=== PATIENT | female | born 1995 | race Hispanic/Latino ===

== ENCOUNTER 2017-07-10 02:08 | Emergency (ER) | payer BC, OTHER, SELFPAY ==
[2017-07-10] MEDS ORDERED: NA CHLORIDE 0.9% 1,000 ML ONE (02:59)
[2017-07-10] MEDS ORDERED: LABETALOL 20 MG/4ML SYRINGE IV ONE (03:21)
[2017-07-10] MEDS ORDERED: Magnesium Sulfate 2gm IVPB 2 G/50 ML BAG IV ONE (03:21)
[2017-07-10 03:29] LABS: Absolute Lymphocytes (CBC) 1.6 K/uL (0.7-4.9); Absolute Monocytes 0.4 K/uL (0.1-1.3); Absolute Neutrophil 8.5 K/uL (1.8-8.0); Basophils % 0.4 % (0-1.3); Eosinophils % 0.2 % (0-4.4); Hematocrit 36.3 % (36.0-45.0); Lymphocytes % 15.3 % (15.3-44.8); MCH 31.2 pg (27.0-35.0); MCV 93.2 fL (80-100); MPV 10.2 fL (7.6-11.3); Monocytes % 3.5 % (3.3-12.3)
[2017-07-10 03:33] LABS: Protime INR 0.87
[2017-07-10 03:41] LABS: Potassium 4.6 mEq/L (3.6-5.0)
[2017-07-10 03:47] LABS: Albumin 2.1 g/dL (3.2-5.5); Bilirubin Direct 0.1 mg/dL (0-0.2); Bilirubin Total 0.2 mg/dL (0.3-1.2); Magnesium 2.4 mg/dL (1.8-2.5); Protein, Total 5.2 g/dL (6.0-8.3)
[2017-07-10 03:49] LABS: CKMB Creatine Kinase MB 1.6 ng/ml (0.3-4.0)
[2017-07-10] MEDS ORDERED: ONDANSETRON 4 MG/2 ML VIAL ONE (04:04)
--- NOTE | 2017-07-10 04:24 | EDPHYS ---
Physician Documentation [facility] Name: Maggi Ramirez Age: 21 yrs Sex: Female : 1995 Arrival Date: 07/10/2017 Time: 02:12 Bed 20 Private MD: ED Physician Nnamdi Rucker HPI: 07/10 02:56 This 21 yrs old Female presents to ER via EMS with unknown complaint. molly 02:56 This 21 yrs old Female presents to ER via EMS with complaints of AND molly SEIZURES. 02:56 The patient presents to the emergency department with nausea and vomiting, seizure(s). molly The estimated gestational age is 25 weeks. Associated signs and symptoms: The patient has no apparent associated signs or symptoms. Context: the episode(s) was witnessed, by family, mother. 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 - Social history:: Smoking status: Patient/guardian denies using tobacco. - Family history:: not pertinent. ROS: 02:56 Constitutional: Negative for fever, chills, and weight loss, Eyes: Negative for injury, molly pain, redness, and discharge, ENT: Negative for injury, pain, and discharge, Neck: Negative for injury, pain, and swelling, Cardiovascular: Negative for chest pain, palpitations, and edema, Respiratory: Negative for shortness of breath, cough, wheezing, and pleuritic chest pain, Abdomen/GI: Negative for abdominal pain, nausea, vomiting, diarrhea, and constipation, Back: Negative for injury and pain, : Negative for injury, bleeding, discharge, and swelling, MS/Extremity: Negative for injury and deformity, Skin: Negative for injury, rash, and discoloration, Neuro: Negative for headache, weakness, numbness, tingling, and seizure, Psych: Negative for depression, anxiety, suicide ideation, homicidal ideation, and hallucinations, Allergy/Immunology: Negative for hives, rash, and allergies, Endocrine: Negative for neck swelling, polydipsia, polyuria, polyphagia, and marked weight changes, Hematologic/Lymphatic: Negative for swollen nodes, abnormal bleeding, and unusual bruising. Exam: 02:56 Constitutional: This is a well developed, well nourished patient who is awake, alert, molly and in no acute distress. Head/Face: Normocephalic, atraumatic. Eyes: Pupils equal round and reactive to light, extra-ocular motions intact. Lids and lashes normal. Conjunctiva and sclera are non-icteric and not injected. Cornea within normal limits. Periorbital areas with no swelling, redness, or edema. ENT: Nares patent. No nasal discharge, no septal abnormalities noted. Tympanic membranes are normal and external auditory canals are clear. Oropharynx with no redness, swelling, or masses, exudates, or evidence of obstruction, uvula midline. Mucous membranes moist. Neck: Trachea midline, no thyromegaly or masses palpated, and no cervical lymphadenopathy. Supple, full range of motion without nuchal rigidity, or vertebral point tenderness. No Meningismus. Chest/axilla: Normal chest wall appearance and motion. Nontender with no deformity. No lesions are appreciated. Cardiovascular: Regular rate and rhythm with a normal S1 and S2. No gallops, murmurs, or rubs. Normal PMI, no JVD. No pulse deficits. Respiratory: Lungs have equal breath sounds bilaterally, clear to auscultation and percussion. No rales, rhonchi or wheezes noted. No increased work of breathing, no retractions or nasal flaring. Abdomen/GI: Soft, non-tender, with normal bowel sounds. No distension or tympany. No guarding or rebound. No evidence of tenderness throughout. 03:00 Radiologist reports: SEE REPORT molly Vital Signs: 02:16 BP 164 / 116; Pulse 73; Resp 16; Temp 98.7; Pulse Ox 95% ; Weight 58.97 kg; bp 02:30 BP 147 / 106; Pulse 92; Resp 98; Pulse Ox 95% ; bp 04:01 BP 154 / 110; Pulse 94; Resp 22; Pulse Ox 95% ; bp 04:30 BP 159 / 113; Pulse 88; Resp 22; Pulse Ox 95% ; bp 05:08 BP 158 / 106; Pulse 97; Resp 20; Pulse Ox 96% ; bp 05:28 BP 138 / 102; Pulse 95; Resp 14; Pulse Ox 95% ; bp MDM: 02:53 Patient medically screened. [facility] 03:10 Data reviewed: vital signs, nurses notes, lab test result(s), EKG, radiologic studies. [facility] 07/10 02:55 Order name: Basic Metabolic Panel [facility] 07/10 02:55 Order name: BNP [facility] 07/10 02:55 Order name: CBC with Diff [facility] 07/10 02:55 Order name: Ckmb; Complete Time: 04:19 [facility] 07/10 02:55 Order name: CPK; Complete Time: 04:19 [facility] 07/10 02:55 Order name: LFT's; Complete Time: 04:19 [facility] 07/10 02:55 Order name: Magnesium; Complete Time: 04:19 [facility] 07/10 02:55 Order name: PT-INR; Complete Time: 04:19 [facility] 07/10 02:55 Order name: Ptt, Activated; Complete Time: 04:19 [facility] 07/10 02:55 Order name: Troponin (emerg Dept Use Only); Complete Time: 04:19 [facility] 07/10 02:56 Order name: Basic Metabolic Panel; Complete Time: 04:19 [facility] 07/10 02:56 Order name: BNP B-Type Natriuretic Peptide; Complete Time: 04:19 [facility] 07/10 02:55 Order name: XRAY Chest (1 view) [facility] 07/10 02:55 Order name: EKG; Complete Time: 02:56 [facility] 07/10 02:55 Order name: Cardiac monitoring; Complete Time: 03:24 [facility] 07/10 02:55 Order name: EKG - Nurse/Tech; Complete Time: 04:00 [facility] 07/10 02:55 Order name: IV Saline Lock; Complete Time: 02:56 [facility] 07/10 02:55 Order name: CT Head Brain wo Cont [facility] 07/10 02:56 Order name: CBC with Automated Diff; Complete Time: 04:19 [facility] 07/10 02:55 Order name: Labs collected and sent; Complete Time: 03:24 [facility] 07/10 02:55 Order name: O2 Per Protocol; Complete Time: 03:24 [facility] 07/10 02:55 Order name: O2 Sat Monitoring; Complete Time: 03:24 [facility] 07/10 02:55 Order name: FHT's; Complete Time: 03:10 [facility] 07/10 02:55 Order name: Seizure Precautions; Complete Time: 02:56 [facility] 07/10 03:00 Order name: FHT's; Complete Time: 03:10 molly Administered Medications: 03:00 Drug: NS 0.9% 1000 ml Route: IV; Rate: 1 bolus; Site: left antecubital; bp 05:10 Follow up: IV Status: Completed infusion; Infusion continued bp 03:20 Drug: Magnesium Sulfate 2 grams Route: IVPB; Infused Over: 2 hrs; Site: left bp antecubital; 04:49 Follow up: IV Status: Completed infusion bp 03:20 Drug: Trandate 20 mg Route: IVP; Site: left antecubital; bp 04:00 Follow up: Response: No adverse reaction bp 04:06 Drug: Zofran 4 mg Route: IVP; Site: left antecubital; bp 04:06 Follow up: Response: Nausea is decreased bp 05:01 Drug: Trandate 20 mg Route: IVP; Site: right antecubital; ao 05:10 Follow up: Response: No change in condition bp 05:07 Drug: Magnesium Sulfate 4 grams Route: IVPB; Infused Over: 2 hrs; Site: left aa1 antecubital; 05:11 Follow up: IV Status: Infusion continued upon transfer bp 05:12 Drug: Betamethasone 12 mg Route: IM; Site: left gluteus; aa1 05:17 Drug: Trandate 20 mg Route: IVP; Site: right hand; ao 05:25 Follow up: Response: No adverse reaction bp Disposition: 07/10/17 04:24 Transfer ordered to [facility]. Diagnosis are related conditions, unspecified, second trimester, Epilepsy and recurrent seizures - PRES SYNDROME, Essential (primary) hypertension. - Reason for transfer: Higher level of care. - Accepting physician is TO [facility], OB /WOOD PANEL INSPECTOR. - Condition is Serious. - Problem is new. - Symptoms have improved. Signatures: Dispatcher [employer] EDMS Josefa Kiser RN RN aa1 Nnamdi Rucker MD MD cha Ortiz, Alex RN Adelfo Ballesteros RN RN bp Botello, Elizabeth eb Corrections: (The following items were deleted from the chart) 04:40 04:24 07/10/2017 04:24 Transfer ordered to [facility]. Diagnosis is eb related conditions, unspecified, second trimester; Epilepsy and recurrent seizures - PRES SYNDROME; Essential (primary) hypertension. Reason for transfer: Higher level of care. Accepting physician is TO [facility], OB /WOOD PANEL INSPECTOR. Condition is Serious. Problem is new. Symptoms have improved. molly 05:39 04:40 07/10/2017 04:24 Transfer ordered to [facility]. Diagnosis is bp related conditions, unspecified, second trimester; Epilepsy and recurrent seizures - PRES SYNDROME; Essential (primary) hypertension. Reason for transfer: Higher level of care. Accepting physician is TO [facility], OB /WOOD PANEL INSPECTOR. Condition is Serious. Problem is new. Symptoms have improved. eb
--- NOTE | 2017-07-10 04:24 | ER ---
Nurse's Notes [facility] Name: Maggi Ramirez Age: 21 yrs Sex: Female : 1995 Arrival Date: 07/10/2017 Time: 02:12 Bed 20 Private MD: Diagnosis: related conditions, unspecified, second trimester;Epilepsy and recurrent seizures-PRES SYNDROME;Essential (primary) hypertension Presentation: 07/10 02:13 Presenting complaint: EMS states: FAMILY SAID SHE WAS SHAKING AND WOULDN'T STOP. bp Transition of care: patient was not received from another setting of care. Onset of symptoms is unknown. Initial Sepsis Screen: Does the patient meet any 2 criteria? No. Patient's initial sepsis screen is negative. Does the patient have a suspected source of infection? No. Patient's initial sepsis screen is negative. Care prior to arrival: IV initiated. 20 GA, in the left antecubital area, Glucose check: 90. 02:13 Method Of Arrival: EMS: [facility] bp 02:13 Acuity: ANIBAL 3 bp Triage Assessment: 02:16 General: Appears distressed, comfortable, Behavior is calm, cooperative, appropriate bp for age. Pain: Denies pain. EENT: No deficits noted. Neuro: Level of Consciousness is awake, obeys commands, lethargic, Oriented to person, place, time, situation, Appropriate for age. Respiratory: Airway is patent Respiratory effort is even, unlabored. GI: No signs and/or symptoms were reported involving the gastrointestinal system. 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 - Social history:: Smoking status: Patient/guardian denies using tobacco. - Family history:: not pertinent. Screenin:34 Abuse screen: Denies threats or abuse. Denies injuries from another. Nutritional bp screening: No deficits noted. Tuberculosis screening: No symptoms or risk factors identified. Fall Risk None identified. Assessment: 02:34 Reassessment: SEE TRIAGE NOTE. bp 04:05 Reassessment: PT RETURNED FROM CT. SPONTANEOUS VOMITING. PROVIDER NOTIFIED. bp 04:30 Reassessment: PER PROVIDER, CT HEAD GROSSLY ABNORMAL. TRANSFER REQUEST TRANSMITTED. bp 04:58 Reassessment: TRANSFER IN PROCESS, ETA 22MIN FOR [facility]. PT CONTINUES TO BE bp LETHARGIC. 05:27 Reassessment: [facility] AT B/S FOR TRANSPORT. bp Vital Signs: 02:16 BP 164 / 116; Pulse 73; Resp 16; Temp 98.7; Pulse Ox 95% ; Weight 58.97 kg; bp 02:30 BP 147 / 106; Pulse 92; Resp 98; Pulse Ox 95% ; bp 04:01 BP 154 / 110; Pulse 94; Resp 22; Pulse Ox 95% ; bp 04:30 BP 159 / 113; Pulse 88; Resp 22; Pulse Ox 95% ; bp 05:08 BP 158 / 106; Pulse 97; Resp 20; Pulse Ox 96% ; bp 05:28 BP 138 / 102; Pulse 95; Resp 14; Pulse Ox 95% ; bp Vitals: 03:22 Heart Tones 160. bp ED Course: 02:12 Patient arrived in ED. rg2 02:12 Adelfo Steiner, RN is Primary Nurse. bp 02:15 Triage completed. bp 02:34 Arm band placed on. bp 02:34 Patient has correct armband on for positive identification. Bed in low position. Call bp light in reach. Side rails up X2. Adult w/ patient. 02:34 Maintain EMS IV. Dressing intact. Good blood return noted. Site clean \T\ dry. Gauge \T\ bp site: 20 GAUGE LEFT AC. 02:53 Nnamdi Rucker MD is Attending Physician. molly 03:34 X-ray completed. Portable x-ray completed in exam room. Patient tolerated procedure bb2 well. 03:[address] via stretcher. nj 03:36 CT Head Brain wo Cont In Process Unspecified. EDMS 03:39 XRAY Chest (1 view) In Process Unspecified. EDMS 03:46 CT completed. Patient tolerated procedure well. Patient moved back from CT. nj 04:16 initiated transfer to [facility] with Zunilda Mcleod. eb 04:[id number] Santiago Pereira connected and accepted patient in transfer/ administrative eb approval given by Zunilda Mcleod. Pt to go to [facility] L\T\D. 05:07 Report given to DHIRAJ FROST, [facility] L\T\D TRIAGE. bp 05:18 Inserted saline lock: 22 gauge in right forearm, using aseptic technique. ao 05:28 No provider procedures requiring assistance completed. Patient transferred, IV remains bp in place. Administered Medications: 03:00 Drug: NS 0.9% 1000 ml Route: IV; Rate: 1 bolus; Site: left antecubital; bp 05:10 Follow up: IV Status: Completed infusion; Infusion continued bp 03:20 Drug: Magnesium Sulfate 2 grams Route: IVPB; Infused Over: 2 hrs; Site: left bp antecubital; 04:49 Follow up: IV Status: Completed infusion bp 03:20 Drug: Trandate 20 mg Route: IVP; Site: left antecubital; bp 04:00 Follow up: Response: No adverse reaction bp 04:06 Drug: Zofran 4 mg Route: IVP; Site: left antecubital; bp 04:06 Follow up: Response: Nausea is decreased bp 05:01 Drug: Trandate 20 mg Route: IVP; Site: right antecubital; ao 05:10 Follow up: Response: No change in condition bp 05:07 Drug: Magnesium Sulfate 4 grams Route: IVPB; Infused Over: 2 hrs; Site: left aa1 antecubital; 05:11 Follow up: IV Status: Infusion continued upon transfer bp 05:12 Drug: Betamethasone 12 mg Route: IM; Site: left gluteus; aa1 05:17 Drug: Trandate 20 mg Route: IVP; Site: right hand; ao 05:25 Follow up: Response: No adverse reaction bp Outcome: 04:24 ER care complete, transfer ordered by MD. barnes 05:28 Transferred by helicopter to [facility]. bp 05:28 Condition: stable 05:28 Instructed on the need for transfer. 05:39 Patient left the ED. bp Signatures: Dispatcher [employer] EDMS Lin Hernandez2 Josefa Kiser RN RN aa1 Nnamdi Rucker MD MD cha Ortiz, Alex RN Dilan Augustine Brian, RN RN bp Swathi Dahl Elizabeth eb Corrections: (The following items were deleted from the chart) 02:34 02:16 BP 147 / 106; Pulse 92bpm; Resp 98bpm; Pulse Ox 95%; bp bp 04:47 02:16 BP 164 / 116; Pulse 73bpm; Resp 16bpm; Pulse Ox 95%; bp bp
[2017-07-10] MEDS ORDERED: LABETALOL HCL 100 MG/20 ML ONE (04:54)
[2017-07-10] MEDS ORDERED: Magnesium Sulfate 2gm IVPB 4 G/100 ML BAG IV ONE (05:00)
[2017-07-10] MEDS ORDERED: BETAMET ACET/BETAMET NA PH 6 MG/ML VIAL IM ONE (05:06)
[2017-07-10 05:43] VITALS: TEMP 98.7
[2017-07-10 05:49] VITALS: BP 138/102; O2SAT 95
--- NOTE | 2017-07-10 06:28 | EKG ---
Test Date: 2017-07-10 Test Time: 03:57:23 House Decorator: CHANDRA MEASUREMENT RESULTS: Intervals: Rate: 95 LA: 142 QRSD: 66 QT: 342 QTc: 429 [place]: P: 75 LA: 142 QRS: 63 T: 34 INTERPRETIVE STATEMENTS: Normal sinus rhythm Normal ECG Compared to ECG 03/05/2006 20:00:22 Sinus arrhythmia no longer present Electronically Signed On 07-10-17 06:27:38 CDT by Rey William
--- NOTE | 2017-07-10 09:17 | RAD REPORT ---
EXAM DESCRIPTION: RAD - Chest Single View - 07/10/2017 3:39 am CLINICAL HISTORY: Abdominal pain, abdominal distention COMPARISON: None. TECHNIQUE: AP portable chest image was obtained 0328 hours . FINDINGS: Lung volumes are normal. Right lung field is clear. There is motion degradation present ac centuating lung base markings. At the left there is hazy opacification obscuring the left hemidiaphra gm. Heart size and vasculature are normal range. No pneumothorax. No right-sided pleural effusion. No gross bony abnormality seen. No acute aortic findings suspected. IMPRESSION: Suspected pneumonia or atelectasis at the left base with probable small effusion.
--- NOTE | 2017-07-10 11:33 | RAD REPORT ---
EXAM DESCRIPTION: CT - Head Brain Wo Cont - 07/10/2017 6:39 am CLINICAL HISTORY: Seizure like activity, , altered awareness Technical difficulties delayed final report. A preliminary written report was provided at the time of the study, and the report was reviewed prior to final dictation. COMPARISON: None. TECHNIQUE: Axial 5 mm thick images of the head were obtained without IV contrast. All CT scans are performed using dose optimization technique as appropriate and may include automated exposure control or mA/KV adjustment according to patient size. FINDINGS: No intracranial hemorrhage is present. There is no midline shift. Ventricles are normal. D ecreased attenuation is present involving cortical and subcortical white matter in the bilateral sammy etal lobes near the midline. There is a patchy area diminished activity in the right frontal lobe. Th e posterior fossa, temporal lobes and inferior frontal lobes are normal. No midline shift. Mastoid air cells and visualized portions of the paranasal sinuses are clear. No acute bony findings. IMPRESSION: Abnormal decreased attenuation in the parietal lobes adjacent to the falx. There is dimi nished attenuation in the right frontal lobe white matter as well. In a patient, superior sagittal sinus thrombosis would be a primary concern. Arterial side ischemic or vasculitis process would be possible but not common in a patient this age. Infectious/ in flammatory process would also be a consideration.
== END 2017-07-10 05:39 | disposition short-term general hospital (02) ==
LOC: ER 02:08
DX: I67.83 Posterior reversible encephalopathy syndrome (principal); O16.2 Unspecified maternal hypertension, second trimester; O99.352 Diseases of the nervous system complicating pregnancy, second trimester; G40.802 Other epilepsy, not intractable, without status epilepticus; Z3A.25 25 weeks gestation of pregnancy
CPT/HCPCS: 36415; 70450; 71045; 80048; 80076; 82550; 82553; 83735; 83880; 84484; 85025; 85610; 85730; 93005; 96361; 96365; 96372; 96375; 99285; J2405; J3475; J7030

== ENCOUNTER 2019-04-08 12:21 | Emergency (ER) | payer OTHER, SELFPAY ==
--- OUTSIDE RECORDS SUMMARY | 2019-04-08 12:22 | XMS REPORT ---
:1995 [facility] Address [address] [place] [address] Dr. Yanes [address] [place] [id number] Care Team Providers Name Role Phone Unavailable Unavailable Unavailable Problems This patient has no known problems. Allergies, Adverse Reactions, Alerts This patient has no known allergies or adverse reactions. Medications This patient has no known medications.
[2019-04-08] MEDS ORDERED: ONDANSETRON 4 MG (ODT) TAB ONE (13:23)
[2019-04-08 14:08] LABS: Urine Blood NEGATIVE (NEG); Urine Glucose 1+ (NEG); Urine Protein NEGATIVE (NEG); Urine pH 5.5 (5.0-7.0)
[2019-04-08] MEDS ORDERED: MORPHINE 2 MG/ML SYR ONE ×2 (15:01→16:48)
[2019-04-08] MEDS ORDERED: KETOROLAC 30 MG/ML INJ ONE (15:01)
[2019-04-08] MEDS ORDERED: ONDANSETRON 4 MG/2 ML VIAL ONE (15:01)
[2019-04-08] MEDS ORDERED: NA CHLORIDE 0.9% 1,000 ML ONE (15:01)
--- NOTE | 2019-04-08 15:25 | RAD REPORT ---
EXAM DESCRIPTION: CT - Stone Protocol - 04/08/2019 2:56 pm CLINICAL HISTORY: ABD PAIN COMPARISON: ABD PAIN TECHNIQUE: CT imaging of the abdomen was performed without oral or IV contrast. All CT scans are performed using dose optimization technique as appropriate and may include automated exposure control or mA/KV adjustment according to patient size. FINDINGS: No suspicious findings in the lung bases. The liver, spleen, and pancreas show no suspicious findings for a non IV contrast study. Gallbladder and biliary tree are also without suspicious finding. No hydronephrosis or suspicious mass in either kidney. Isodense masses and pyelonephritis are not exc luded. No adrenal abnormalities. Contracted urinary bladder shows no stone. Bladder assessment is myers ited. Uterus and ovaries show no suspicious findings. No dilated bowel loops or bowel wall thickening. No free air, free fluid or inflammatory stranding. N o hernia, mass or bulky lymphadenopathy. Appendix is normal. No suspicious bony findings. Overall exam sensitivity is decreased when no contrast is administered. IMPRESSION: Non-contrast CT abdomen study shows no significant or suspicious finding.
[2019-04-08 15:28] LABS: Basophils % 0.1 % (0-1.3); Hematocrit 41.7 % (36.0-45.0); Lymphocytes % 5.6 % (15.3-44.8); MPV 9.7 fL (7.6-11.3); RBC Red Blood Cell Count 4.68 M/uL (3.86-4.86)
[2019-04-08 15:46] LABS: ALT/SGPT 18 U/L (12-78); AST/SGOT 13 U/L (15-37); Alkaline Phosphatase 104 U/L (45-117); BUN Blood Urea Nitrogen 13 mg/dL (7-18); Bicarbonate 25 mmol/L (21-32); Bilirubin Direct 0.1 mg/dL (0-0.2); Bilirubin Total 0.3 mg/dL (0.2-1.0); Glucose Level 87 mg/dL (74-106); Lipase 122 U/L (73-393); Potassium 4.1 mmol/L (3.5-5.1); Protein, Total 7.8 g/dL (6.4-8.2); Sodium Level 142 mmol/L (136-145)
--- NOTE | 2019-04-08 16:33 | ER ---
Nurse's Notes [facility] Name: Maggi Ramirez Age: 23 yrs Sex: Female : 1995 Arrival Date: 04/08/2019 Time: 12:24 Bed 15 Private MD: Diagnosis: Vomiting;Abdominal tenderness;Elevated white blood cell count Presentation: 04/08 12:51 Presenting complaint: Patient states: Nausea, fatigue and chills that began this ss morning. Pt vomited during triage and reports she feels much better. Transition of care: patient was not received from another setting of care. Onset of symptoms was April 08, 2019. Risk Assessment: Do you want to hurt yourself or someone else? Patient reports no desire to harm self or others. Initial Sepsis Screen: Does the patient meet any 2 criteria? HR > 90 bpm. Does the patient have a suspected source of infection? No. Patient's initial sepsis screen is negative. Care prior to arrival: None. 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 - Coronavirus screen:: The patient has NOT traveled to [place] in the past 14 days. Proceed with normal triage process as indicated. - Social history:: Smoking status: Patient denies any tobacco usage or history of. - Family history:: not pertinent. - Ebola Screening: : Patient denies exposure to infectious person Patient denies travel to an Ebola-affected area in the 21 days before illness onset. Screenin:42 Abuse screen: Denies threats or abuse. Denies injuries from another. Nutritional mg2 screening: No deficits noted. Tuberculosis screening: No symptoms or risk factors identified. Fall Risk None identified. Assessment: 13:40 General: Appears in no apparent distress. comfortable, Behavior is calm, cooperative. mg2 Pain: Complains of pain in left sided pain-abdominal Pain does not radiate. Pain currently is 6 out of 10 on a pain scale. Quality of pain is described as aching, Pain began gradually, Is intermittent. Neuro: Level of Consciousness is awake, alert, obeys commands, Oriented to person, place, time, situation. Cardiovascular: Capillary refill < 3 seconds Patient's skin is warm and dry. Respiratory: Airway is patent Respiratory effort is even, unlabored, Respiratory pattern is regular, symmetrical. Respiratory: Reports cough that is. GI: Abdomen is flat, non-distended, Reports lower abdominal pain, vomiting. : No signs and/or symptoms were reported regarding the genitourinary system. EENT: No signs and/or symptoms were reported regarding the EENT system. Derm: Skin is intact, is healthy with good turgor, Skin is pink, warm \T\ dry. normal. Musculoskeletal: Circulation, motion, and sensation intact. Capillary refill < 3 seconds. Vital Signs: 12:49 BP 124 / 84; Pulse 105; Resp 16; Pulse Ox 98% on R/A; Weight 58.97 kg; Height 5 ft. 0 ss in. (152.40 cm); Pain 6/10; 13:27 Temp 97.9; mg2 14:30 BP 123 / 83; Pulse 95; Resp 18; Pulse Ox 97% on R/A; mg2 15:56 BP 117 / 79; Pulse 88; Resp 18; Pulse Ox 97% on R/A; mg2 16:52 BP 117 / 69; Pulse 80; Resp 18; Temp 98; Pulse Ox 100% on R/A; mg2 12:49 Body Mass Index 25.39 (58.97 kg, 152.40 cm) ED Course: 12:24 Patient arrived in ED. mr 12:49 Arm band placed on right wrist. ss 12:51 Triage completed. ss 13:12 Nnamdi Rucker MD is Attending Physician. molly 13:15 Gordon Brown, MARGOT is Primary Nurse. mg2 13:43 Patient has correct armband on for positive identification. mg2 13:43 No provider procedures requiring assistance completed. mg2 14:56 CT completed. Patient tolerated procedure well. Patient moved back from CT. mw3 15:17 Inserted saline lock: 22 gauge in right antecubital area, using aseptic technique. mg2 Blood collected. 16:32 Gabino Aguero MD is Referral Physician. molly 16:54 IV discontinued, intact, bleeding controlled, No redness/swelling at site. Pressure mg2 dressing applied. Administered Medications: 13:26 Drug: Zofran 4 mg Route: PO; mg2 15:16 Follow up: Response: No adverse reaction mg2 15:14 Drug: Zofran 4 mg Route: IVP; Site: right antecubital; mg2 16:39 Follow up: Response: No adverse reaction mg2 15:15 Drug: TORadol 30 mg Route: IVP; Site: right antecubital; mg2 16:39 Follow up: Response: No adverse reaction mg2 15:15 Drug: morphine 2 mg Route: IVP; Site: right antecubital; mg2 16:39 Follow up: Response: No adverse reaction mg2 15:16 Drug: NS 0.9% 1000 ml Route: IV; Rate: 1 bolus; Site: right antecubital; mg2 16:39 Follow up: Response: No adverse reaction; IV Status: Completed infusion; IV Intake: mg2 1000ml 16:53 Drug: morphine 2 mg Route: IVP; Site: right antecubital; mg2 16:53 Follow up: Response: No adverse reaction; Medication administered at discharge. mg2 Intake: 16:39 IV: 1000ml; Total: 1000ml. mg2 Outcome: 16:32 Discharge ordered by . molly 16:54 Discharged to home via wheelchair, with family. mg2 16:54 Condition: stable 16:54 Discharge instructions given to patient, family, Instructed on discharge instructions, follow up and referral plans. medication usage, Demonstrated understanding of instructions, follow-up care, medications, Prescriptions given X 3. 16:55 Patient left the ED. mg2 Signatures: Nnamdi Rucker MD MD cha Rivera, Jaquelin mr Albina Sanz RN RN Gordon Brown RN RN mg2 Mignon Cunningham mw3 Corrections: (The following items were deleted from the chart) 15:17 13:43 Patient did not have IV access during this emergency room visit. mg2 mg2
--- NOTE | 2019-04-08 16:34 | EDPHYS ---
Physician Documentation [facility] Name: Maggi Ramirez Age: 23 yrs Sex: Female : 1995 Arrival Date: 04/08/2019 Time: 12:24 Bed 15 Private MD: ED Physician Nnamdi Rucker HPI: 04/08 14:33 This 23 yrs old Female presents to ER via Ambulatory with complaints of molly Vomiting. 14:33 The patient presents to the emergency department with nausea, vomiting, abdominal pain, molly of the posterior aspect of left lateral abdomen, anterior aspect of left lateral abdomen and left upper quadrant. Onset: The symptoms/episode began/occurred this morning. Possible causes: unknown. The symptoms are aggravated by nothing. The symptoms are alleviated by nothing. Associated signs and symptoms: Pertinent positives: abdominal pain, nausea, vomiting. Severity of symptoms: At their worst the symptoms were moderate in the emergency department the symptoms are unchanged. The patient has experienced a previous episode. 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 - Coronavirus screen:: The patient has NOT traveled to [place] in the past 14 days. Proceed with normal triage process as indicated. - Social history:: Smoking status: Patient denies any tobacco usage or history of. - Family history:: not pertinent. - Ebola Screening: : Patient denies exposure to infectious person Patient denies travel to an Ebola-affected area in the 21 days before illness onset. ROS: 14:33 Constitutional: Negative for fever, chills, and weight loss, Eyes: Negative for injury, molly pain, redness, and discharge, ENT: Negative for injury, pain, and discharge, Neck: Negative for injury, pain, and swelling, Cardiovascular: Negative for chest pain, palpitations, and edema, Respiratory: Negative for shortness of breath, cough, wheezing, and pleuritic chest pain, : Negative for injury, bleeding, discharge, and swelling, MS/Extremity: Negative for injury and deformity, Skin: Negative for injury, rash, and discoloration, Neuro: Negative for headache, weakness, numbness, tingling, and seizure, Psych: Negative for depression, anxiety, suicide ideation, homicidal ideation, and hallucinations, Allergy/Immunology: Negative for hives, rash, and allergies, Endocrine: Negative for neck swelling, polydipsia, polyuria, polyphagia, and marked weight changes. 14:33 Abdomen/GI: Positive for abdominal pain, of the posterior aspect of left lateral abdomen, anterior aspect of left lateral abdomen and left upper quadrant. Exam: 14:33 Constitutional: This is a well developed, well nourished patient who is awake, alert, molly and in no acute distress. Head/Face: Normocephalic, atraumatic. Eyes: Pupils equal round and reactive to light, extra-ocular motions intact. Lids and lashes normal. Conjunctiva and sclera are non-icteric and not injected. Cornea within normal limits. Periorbital areas with no swelling, redness, or edema. ENT: Nares patent. No nasal discharge, no septal abnormalities noted. Tympanic membranes are normal and external auditory canals are clear. Oropharynx with no redness, swelling, or masses, exudates, or evidence of obstruction, uvula midline. Mucous membranes moist. Neck: Trachea midline, no thyromegaly or masses palpated, and no cervical lymphadenopathy. Supple, full range of motion without nuchal rigidity, or vertebral point tenderness. No Meningismus. Chest/axilla: Normal chest wall appearance and motion. Nontender with no deformity. No lesions are appreciated. Respiratory: Lungs have equal breath sounds bilaterally, clear to auscultation and percussion. No rales, rhonchi or wheezes noted. No increased work of breathing, no retractions or nasal flaring. Back: No spinal tenderness. No costovertebral tenderness. Full range of motion. Skin: Warm, dry with normal turgor. Normal color with no rashes, no lesions, and no evidence of cellulitis. MS/ Extremity: Pulses equal, no cyanosis. Neurovascular intact. Full, normal range of motion. Neuro: Awake and alert, GCS 15, oriented to person, place, time, and situation. Cranial nerves II-XII grossly intact. Motor strength 5/5 in all extremities. Sensory grossly intact. Cerebellar exam normal. Normal gait. Psych: Awake, alert, with orientation to person, place and time. Behavior, mood, and affect are within normal limits. 14:33 Cardiovascular: Rate: tachycardic, Rhythm: regular, Pulses: Pulses are 4+ in bilateral radial, brachial, femoral, popliteal, posterior tibial and and dorsalis pedis arteries.. Heart sounds: normal, Edema: is not appreciated, JVD: is not appreciated. Vital Signs: 12:49 BP 124 / 84; Pulse 105; Resp 16; Pulse Ox 98% on R/A; Weight 58.97 kg; Height 5 ft. 0 ss in. (152.40 cm); Pain 6/10; 13:27 Temp 97.9; mg2 14:30 BP 123 / 83; Pulse 95; Resp 18; Pulse Ox 97% on R/A; mg2 15:56 BP 117 / 79; Pulse 88; Resp 18; Pulse Ox 97% on R/A; mg2 16:52 BP 117 / 69; Pulse 80; Resp 18; Temp 98; Pulse Ox 100% on R/A; mg2 12:49 Body Mass Index 25.39 (58.97 kg, 152.40 cm) ss MDM: 13:12 Patient medically screened. molly 14:37 Data reviewed: vital signs, nurses notes, lab test result(s), radiologic studies, CT molly scan. 04/08 13:27 Order name: Urine Dipstick--Ancillary (enter results) 04/08 13:27 Order name: Urine --Ancillary (enter results) 04/08 14:09 Order name: Urine --Ancillary; Complete Time: 14:29 EDNC 04/08 14:09 Order name: Urine Dipstick-Ancillary; Complete Time: 14:29 EDNC 04/08 14:33 Order name: Basic Metabolic Panel [facility] 04/08 14:33 Order name: CBC with Diff [facility] 04/08 14:33 Order name: Creatinine for Radiology [facility] 04/08 14:33 Order name: Hepatic Function [facility] 04/08 14:33 Order name: Lipase [facility] 04/08 15:41 Order name: CBC with Automated Diff EDNC 04/08 15:45 Order name: Creatinine (Radiology Only); Complete Time: 15:52 EDMS 04/08 15:49 Order name: Basic Metabolic Panel; Complete Time: 15:52 EDNC 04/08 15:49 Order name: Liver (Hepatic) Function; Complete Time: 15:52 EDNC 04/08 15:49 Order name: Lipase; Complete Time: 15:52 EDMS 04/08 13:17 Order name: Urine Dipstick-Ancillary (obtain specimen); Complete Time: 13:26 [facility] 04/08 13:17 Order name: Urine Test (obtain specimen); Complete Time: 13:26 [facility] 04/08 14:33 Order name: IV Saline Lock; Complete Time: 15:16 [facility] 04/08 14:33 Order name: Labs collected and sent; Complete Time: 15:16 [facility] 04/08 14:33 Order name: CT Stone Protocol [facility] 04/08 15:53 Order name: Chest Single View XRAY [facility] 04/08 16:23 Order name: CT; Complete Time: 16:31 EDMS 04/08 16:53 Order name: CBC Smear Scan EDMS Administered Medications: 13:26 Drug: Zofran 4 mg Route: PO; mg2 15:16 Follow up: Response: No adverse reaction mg2 15:14 Drug: Zofran 4 mg Route: IVP; Site: right antecubital; mg2 16:39 Follow up: Response: No adverse reaction mg2 15:15 Drug: TORadol 30 mg Route: IVP; Site: right antecubital; mg2 16:39 Follow up: Response: No adverse reaction mg2 15:15 Drug: morphine 2 mg Route: IVP; Site: right antecubital; mg2 16:39 Follow up: Response: No adverse reaction mg2 15:16 Drug: NS 0.9% 1000 ml Route: IV; Rate: 1 bolus; Site: right antecubital; mg2 16:39 Follow up: Response: No adverse reaction; IV Status: Completed infusion; IV Intake: mg2 1000ml 16:53 Drug: morphine 2 mg Route: IVP; Site: right antecubital; mg2 16:53 Follow up: Response: No adverse reaction; Medication administered at discharge. mg2 Disposition: 04/08/19 16:32 Discharged to Home. Impression: Vomiting, Abdominal tenderness, Elevated white blood cell count. - Condition is Stable. - Discharge Instructions: Abdominal Pain, Adult, Nausea and Vomiting, Adult, Abdominal Pain, Adult, [id number]. - Prescriptions for Bentyl 20 mg Oral Tablet - take 1 tablet by ORAL route every 6 hours As needed; 20 tablet. Pepcid 20 mg Oral Tablet - take 1 tablet by ORAL route every 12 hours for 10 days; 20 tablet. Zofran 4 mg Oral Tablet - take 1 tablet by ORAL route every 12 hours As needed; 20 tablet. - Medication Reconciliation Form, Thank You Letter, Antibiotic Education, Prescription Opioid Use form. - Follow up: Private Physician; When: 2 - 3 days; Reason: Recheck today's complaints, Continuance of care, Re-evaluation by your physician. Follow up: Gabino Aguero; When: 2 - 3 days; Reason: Recheck today's complaints, Re-evaluation by your physician. - Problem is new. - Symptoms have improved. Signatures: Dispatcher [employer] EDNC Nnamdi Rucker MD MD cha Smirch, Shelby, RN RN ss Gordon Brown RN RN mg2 Corrections: (The following items were deleted from the chart) 16:55 16:32 04/08/2019 16:32 Discharged to Home. Impression: Vomiting; Abdominal tenderness; mg2 Elevated white blood cell count. Condition is Stable. Discharge Instructions: Abdominal Pain, Adult, Nausea and Vomiting, Adult, Abdominal Pain, Adult, [id number]. Prescriptions for Bentyl 20 mg Oral Tablet - take 1 tablet by ORAL route every 6 hours As needed; 20 tablet, Pepcid 20 mg Oral Tablet - take 1 tablet by ORAL route every 12 hours for 10 days; 20 tablet, Zofran 4 mg Oral Tablet - take 1 tablet by ORAL route every 12 hours As needed; 20 tablet. and Forms are Medication Reconciliation Form, Thank You Letter, Antibiotic Education, Prescription Opioid Use. Follow up: Private Physician; When: 2 - 3 days; Reason: Recheck today's complaints, Continuance of care, Re-evaluation by your physician. Follow up: Gabino Aguero; When: 2 - 3 days; Reason: Recheck today's complaints, Re-evaluation by your physician. Problem is new. Symptoms have improved. molly
[2019-04-08 16:52] LABS: Blood Morphology Comment NOT SEEN (NOT SEEN); Platelet Estimate ADEQ; Urine White Blood Cell Casts OK
--- NOTE | 2019-04-08 16:58 | RAD REPORT ---
EXAM DESCRIPTION: RAD - Chest Single View - 04/08/2019 4:13 pm CLINICAL HISTORY: COUGH COMPARISON: Portable chest June 2017 TECHNIQUE: AP portable chest image was obtained 04/08/2019 4:13 pm . FINDINGS: Lungs are clear. Heart and vasculature are normal. No measurable pleural effusion and no p neumothorax. No acute bony abnormality seen. No acute aortic findings suspected. IMPRESSION: No acute cardiopulmonary process. No significant change from comparison.
[2019-04-08 17:18] VITALS: O2SAT 100
[2019-04-08 18:00] VITALS: BP 117/69; TEMP 98
== END 2019-04-08 16:55 | disposition home or self-care (01) ==
LOC: ER 12:21
DX: D72.829 Elevated white blood cell count, unspecified (principal); R10.819 Abdominal tenderness, unspecified site
CPT/HCPCS: 36415; 71045; 74176; 76377; 80048; 80076; 81003; 81025; 83690; 85025; 96361; 96374; 96375; 99284; J2270; J2405; J7030

== ENCOUNTER 2019-09-19 17:05 | Emergency (ER) | payer SELFPAY ==
--- OUTSIDE RECORDS SUMMARY | 2019-09-19 17:07 | XMS REPORT | Continuity of Care Document ---
:1995 Author Organization [facility] t Address [address] [place] [address] Care Team Providers Name Role Phone Anastasiia Munroe Attending Clinician Problems This patient has no known problems. Allergies, Adverse Reactions, Alerts This patient has no known allergies or adverse reactions. Medications This patient has no known medications. Procedures This patient has no known procedures. Encounters Start End Encounter Admission Attending Care Care Encounter Source Date/Time Date/Time Type Type Clinicians Facility Department ID 2019-08-07 2019-08-07 Office [facility] [id number] 10:13:20 10:58:03 Visit Haylee Laurent NETWORK MANAGER [id number] [facility] [id number] MATERNAL [id number] & CHILD [address] [place] [address] Results This patient has no known results.
--- OUTSIDE RECORDS SUMMARY | 2019-09-19 17:07 | XMS REPORT | Summary of Care ---
:1995 Author Organization [facility] Address [address] [place] [address] Care Team Providers Name Role Phone Jenae Funk Unavailable Anastasiia Austin SHAYNE Primary Care Provider Reason for Visit Reason Comments Appointment telehealth Encounter Details Date Type Department Care Team Description 07/10/2019 Telephone [facility]- Haylee Austin Jeff ointment ADDISON Chambers (telehealth) [address] [facility] [address] [facility] [address] [address] [place], [place] [id number] Allergies No Known Allergiesdocumented as of this encounter (statuses as of 07/10/2019) Medications Medication Sig Dispensed Refills Start Date End Date Status NIFEdipine ER 30 mg SR Take 1 tablet by 60 tablet 1 07/14/2017 Active tablet mouth 2 (two) times daily. vitamin w/FA Take 1 tablet by 100 tablet 3 07/14/2017 Active tablet mouth daily. traMADol (ULTRAM) 50 Take 1 tablet by 20 tablet 0 04/08/2019 Active mg tabletIndications: mouth every 6 Left lower quadrant (six) hours as abdominal pain needed for Pain (scale 7-10). documented as of this encounter (statuses as of 07/10/2019) Active Problems Problem Noted Date History of classical section 08/19/2017 Overview: Needs delivery at 36-37 wks if pt gets p regnant again. 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 08/19/2017 Overview: Growth scans every 4 weeks NSTs at 30 to 32 for 2 vessel cord Two vessel umbilical cord, antepartum 07/09/2017 Abnormal quad screen 06/14/2017 08/19/2017 Primigravida, antepartum 06/03/2017 07/13/2017 Insufficient antepartum care 06/03/2017 08/19/2017 High risk in young primigravida 06/03/2017 08/19/2017 documented as of this encounter (statuses as of 07/10/2019) Immunizations Name Administration Dates Next Due HPV9 01/17/2018, 08/17/2017, 07/14/2017 Influenza Virus Vaccine Quad IM 3+ YRS 06/03/2017 documented as of this encounter Social History Tobacco Use Types Packs/Day Years Used Date Never Smoker Smokeless Tobacco: Never Used Alcohol Use Drinks/Week oz/Week Comments No Sex Assigned at Date Recorded Not on file Job Start Date Occupation Industry Not on file Not on file Not on file Travel History Travel Start Travel End No recent travel history available. documented as of this encounter Last Filed Vital Signs Not on filedocumented in this encounter Plan of Treatment Date Type Specialty Care Team Description 07/10/2019 Telemedicine Visit [facility] Jacques Austin, ADDISON Arrived [address], [place] [address] [phone] Health Maintenance Due Date Last Done Comments MENINGOCOCCAL B VACCINES (1 of 10/04/2007 2 - Risk Bexsero 2-dose series) DTaP,Tdap,and Td Vaccines (1 - 2008 Tdap) WELL CARE VISIT: 12-21 YEARS 2009 (yearly) CHLAMYDIA SCREENING 08/19/2018 08/19/2017, 06/03/2017 PAP SMEAR 2018 INFLUENZA VACCINE (Season 10/24/2019 06/03/2017 Ended) HPV VACCINES Completed 01/17/2018, 08/17/2017, 07/14/2017 MENINGOCOCCAL VACCINE Aged Out No longer eligible based on patient's age to complete this to pic PNEUMOCOCCAL 0-64 YEARS Aged Out No longe r eligible based COMBINED SERIES on patient's age to complete this to pic documented as of this encounter Results Not on filedocumented in this encounter Insurance Payer Benefit Plan Subscriber ID Effective Phone Address Typ e / Group Dates [facility] x[facility] 2019-Prese [phone] Medicaid WOMEN nt [address] [place] [address] documented as of this encounter Advance Directives Name Relationship Healthcare Agent Communication Relationship Jennifer Ramirez Sibling Primary healthcare agent Randi Cohen Aunt [facility] healthcare [phone] agent (Mobile)
--- OUTSIDE RECORDS SUMMARY | 2019-09-19 17:07 | XMS REPORT | Summary of Care ---
:1995 Author Organization [facility] Address [address] [place] [address] Care Team Providers Name Role Phone Jenae Funk Unavailable Anastasiia Austin SHAYNE Primary Care Provider Reason for Visit Reason Comments Appointment telehealth Encounter Details Date Type Department Care Team Description 07/10/2019 Telephone [facility]- Haylee Austin Jeff ointment ADDISON Chambers (telehealth) [address] [facility] [address] [facility] [address] [address] [place], [place] [address] Allergies No Known Allergiesdocumented as of this [...] filedocumented in this encounter Plan of Treatment Health Maintenance Due Date Last Done Comments [...] Address Typ e / Group Dates [facility] xxxxxxxxx 2019-Prese [phone] Medicaid WOMEN nt [id number] [place] [address] documented as of this encounter Advance Directives Name Relationship Healthcare Agent Communication Relationship Jennifer Ramirez Sibling Primary healthcare agent Randi Cohen Aunt First [facility] healthcare [phone] agent (Mobile)
--- OUTSIDE RECORDS SUMMARY | 2019-09-19 17:08 | XMS REPORT | Summary of Care ---
:1995 Author Organization [facility] Address [address] [place] [address] Care Team Providers Name Role Phone Jenea Funk Unavailable Anastasiia Austin [facility] Primary Care Provider Reason for Visit Reason Comments Well Woman Exam Encounter Details Date Type Department Care Team Description 08/07/2019 Office Visit [facility]- Haylee Austin Ot er general counseling and advice for contraceptive management (Primary Dx); [facility]; [address] Screen for STD (sexually transmitted dis ease) [address] [place] [id number] [phone] Allergies No Known Allergiesdocumented as of this encounter (statuses as of 08/07/2019) Medications Medication Sig Dispensed Refills Start Date End Date Status NIFEdipine ER 30 mg Take 1 60 tablet 1 07/14/2017 Active SR tablet tablet by mouth 2 (two) times daily. vitamin Take 1 100 tablet 3 07/14/2017 A ctive w/FA tablet tablet by mouth daily. traMADol (ULTRAM) Take 1 20 tablet 0 04/08/2019 A ctive 50 mg tablet by tabletIndications: mouth every Left lower quadrant 6 (six) abdominal pain hours as needed for Pain (scale 7-10). levonorgestrel-ethi Take 1 1 Package 2 08/07/2019 Active nyl estradiol tablet by (SRONYX) 0.1-20 mouth mg-mcg per daily. tabletIndications: Other general counseling and advice for contraceptive management levonorgestrel-ethi Take 1 1 Package 0 07/24/2019 Discontinued nyl estradiol tablet by 0 (Reord er) (SRONYX) 0.1-20 mouth mg-mcg per daily. tabletIndications: Other general counseling and advice for contraceptive management documented as of this encounter (statuses as of 08/07/2019) Active Problems Problem Noted Date Well woman exam 08/07/2019 Other general counseling and advice for contraceptive management 07/24/2019 History of classical section 08/19/2017 Overview: Needs delivery at 36-37 wks if pt gets p regnant again. documented as of this encounter (statuses as of 08/07/2019) Resolved Problems Problem Noted Date Resolved Date [...] as of this encounter (statuses as of 08/07/2019) Immunizations Name Administration Dates Next Due HPV9 [...] Travel End No recent travel history available. COVID-19 Exposure Response Date Recorded In the last month, have you been in contact with No / Unsure 08/07/2019 10:32 AM CDT someone who was confirmed or suspected to have Coronavirus / COVID-19? documented as of this encounter Last Filed Vital Signs Vital Sign Reading Time Taken Comments Blood Pressure 117/74 08/07/2019 10:33 AM CDT Pulse 81 08/07/2019 10:33 AM CDT Temperature 36.4 C (97.5 F) 08/07/2019 10:33 AM CDT Respiratory Rate 16 08/07/2019 10:33 AM CDT Oxygen Saturation - - Inhaled Oxygen Concentration - - Weight 56.9 kg (125 lb 7 oz) 08/07/2019 10:33 AM CDT Height 152.4 cm (5') 08/07/2019 10:33 AM CDT Body Mass Index 24.5 08/07/2019 10:33 AM CDT documented in this encounter Patient Instructions Patient InstructionsYulissa Servin LVN - 08/07/2019 10:00 AM CDT Patient Education Clinical Breast Exam Many health organizations recommend a yearly clinical breast exam. This exam may be done by a bisque placer, family healthcare provider, nurse practitioner, nurse senior c web developer, or specially trained nurse. Yearly breast exams help tomake surethat breast conditions are found early. Your healthcare providers role A healthcare professional knows the tests and follow-up care needed if a problem is found. Your clinical exam is also a great time to ask questions about breast self-exams. You can find out if yourechecking your breasts in the best way. Or you may want to ask how , breast implants, or breast reduction surgery affect the way you should check your breasts. Diagnostic tests If a clinical exam reveals a breast change, you may have other tests to find out more. These tests may include: Mammography. A low-dose X-ray of your breast tissue. Ultrasound. An imaging test that uses sound waves to create images of your breast. Biopsy. A small amount of breast tissue is removed by needle or by a cut (incision). The tissue is then checked under a microscope. Guidelines for having clinical breast exams The [employer] recommends that starting at age 29, you should have a clinical breast exam every 1 to 3 years. After age 40, have a clinical breast exam each year. If youre at higher risk for breast cancer, you may need exams more often. Risk factors for breast cancer may include: Being over 50 or postmenopausal Having a family history of breast cancer Having the BRCA1 or BRCA2 gene mutation or certain other gene mutations Having more menstrual periods due to starting menstruation early(before age 12) or having a late menopause (after age 55) Having no pregnancies Having a first after age 30 Being obese Having a history of radiation treatment to your chest area Exposure to ALEXYS during your mother's Not being active Drinking too much alcohol Having dense breast tissue Taking hormone therapy after menopause Other health organizations have different recommendations. Talk with your healthcare provider about what is best for you. [employer] last reviewed this educational content on 09/22/201619996068-8573 The [employer]. [address] [place] [address]. All rights reserved. This information is not intended as a substitute for professional medical care. Always follow your healthcare professional's instructions. Patient Education Breast Health: Breast Self-Awareness What is breast self-awareness? Breast self-awareness is knowing how your breasts normally look and feel. Your breasts change as yougo through different stages of your life. So its important to learn what is normal for your breasts. Knowing about your breasts helps you spot any changes in them right away. Tell your healthcare provider about any changes. Why is breast self-awareness important? Many experts now say that women should focus on breast self-awareness instead of doing a breast self-examination (BSE). These experts include the [place] [employer] and the [place] [employer]. Some experts even advise not teaching women to do a BSE. Thats because research hasnt shown a clear benefit to doing BSEs. Breast self-awareness is different than a BSE. It isnt about following a certain method and schedule. Its about knowing what's normal for your breasts. That way you can spot even small changes right away. If you see any changes, tell your healthcare provider. Changes to look for Call your healthcare provider if you find any changes in your breasts that worry you. These changes may be: A lump Nipple discharge other than breastmilk, especially if it's bloody Swelling A change in size or shape Skin changes, such as redness, thickening, or dimpling of the skin Swollen lymph nodes in the armpit Nipple problems, such as pain or redness If you find a lump Call your provider if you find lumpiness in one breast. Also call if you feel something different inthe tissue or feel a definite lump. Sometimes lumpiness may be due to menstrual changes. But there may be reason for concern. Your provider may want to see you right away if you have: Nipple discharge that is bloody Skin changes on your breast, such as dimpling or puckering Its okay to be upset if you find a lump. Be sure to call your provider right away. Remember that most breast lumps are benign. This means they are not cancer. [employer] last reviewed this educational content on 09/22/201619990193-3042 The [employer]. [address] [place] [address]. All rights reserved. This information is not intended as a substitute for professional medical care. Always follow your healthcare professional's instructions. Patient Education Prevention Guidelines,Women Ages 18 to 39 Screening tests and vaccines are an important part of managing your health. A screening test is doneto find possible disorders or diseases in people who don't have any symptoms. The goal is to find a disease early so lifestyle changes can be made and you can be watched more closely to reduce the riskof disease, or to detect it early enough to treat it most effectively. Screening tests are not considered diagnostic, but are used to determine if more testing is needed. Health counseling is essential, too. Below are guidelines for these, for women ages 18 to 39. Talk with your healthcare provider tomake sure youre up-to-date on what you need. Screening Who needs it How often Alcohol misuse All women in this age group At routine exams Blood pressure All women in this age group Yearly checkup if your blood pressure is normal Normal blood pressure is less than 120/80 mm Hg If your blood pressure reading is higher than normal, follow the advice of your healthcare provider Breast cancer All women in this age group should talk with their healthcare providers about the needfor clinical breast exams (CBE)1 Clinical breast exam every 3 years1 Cervical cancer Women ages 21 and older Women between ages 21 and 29 should have a Pap test every 3 years; women between ages 30 and 65 are advised to have a Pap test plus an HPV test every 5 years Chlamydia Sexually active women ages 25 and younger, and women at increased risk for infection (suchas having multiple sex partners) Every year if you're at risk or have symptoms Depression All women in this age group At routine exams Type 2 diabetes, prediabetes All women with no symptoms who are overweight or obese and have 1 or more other risk factors for diabetes At least every 3 years. Also, testing for diabetes during after the 24th week. Type 2 diabetes, prediabetes All women diagnosed with gestational diabetes Lifelong testing every 3 years Type 2 diabetes All women with prediabetes Every year Gonorrhea Sexually active women at increased risk for infection At routine exams Hepatitis C Anyone at increased risk At routine exams HIV All women should be tested at least once for HIV between the ages of 13 and 64 At routine exams.Those with risk factors for HIV should be tested at least annually. Obesity All women in this age group At routine exams Syphilis Women at increased risk for infection should talk with their healthcare provider At routineexams Tuberculosis Women at increased risk for infection should talk with their healthcare provider Ask your healthcare provider Vision All women in this age group At least 1 complete exam in your 20s, and 2 in your 30s Vaccine2 Who needs it How often Chickenpox (varicella) All women in this age group who have no record of this infection or vaccine 2doses; the second dose should be given 4 to 8 weeks after the first dose Hepatitis A Women at increased risk for infection should talk with their healthcare provider 2 dosesgiven at least 6 months apart Hepatitis B Women at increased risk for infection should talk with their healthcare provider 3 dosesover 6 months; second dose should be given 1 month after the first dose; the third dose should be given at least 2 months after the second dose and at least 4 months after the first dose Haemophilus influenzaeType B (HIB) Women at increased risk for infection should talk with their healthcare provider 1 to 3 doses Human papillomavirus (HPV) All women in this age group up to age 26 3 doses; the second dose should be given 1 to 2 months after the first dose and the third dose given 6 months after the first dose Influenza (flu) All women in this age group Once a year Measles, mumps, rubella (MMR) All women in this age group who have no record of these infections or vaccines 1 or 2 doses Meningococcal Women at increased risk for infection should talk with their healthcare provider 1 or more doses Pneumococcal conjugate vaccine (PCV13)and pneumococcal polysaccharidevaccine(PPSV23) Women at increased risk for infection should talk with their healthcare provider PCV13: 1 dose ages 19 to 65 (protects against 13 types of pneumococcal bacteria) PPSV23: 1 to2 doses through age 64, or 1 dose at 65 or older (protects against 23 types of pneumococcal bacteria) Tetanus/diphtheria/pertussis (Td/Tdap) booster All women in this age group Td every 10 years, or a one-time dose of Tdap instead of a Td booster after age 18, then Td every 10 years Counseling Who needs it How often BRCA gene mutation testing for breast and ovarian cancer susceptibility Women with increased risk for having gene mutation When your risk is known Breast cancer and chemoprevention Women at high risk for breast cancer When your risk is known Diet and exercise Women who are overweight or obese When diagnosed, and then at routine exams Domestic violence Women at the age in which they are able to have children At routine exams Sexually transmitted infection prevention Women who are sexually active At routine exams Skin cancer Prevention of skin cancer in fair-skinned adults At routine exams Use of tobacco and the health effects it can cause All women in this age group Every visit 1 According to the ACS, women ages 20 to 39 years should have a clinical breast exam (CBE) as part of their routine health exam every 3 years. Breast self-exams are an option for women starting in their 20s.But the USPSTF does not recommend CBE. [employer] last reviewed this educational content on 11/22/201619996700-6230 The [employer]. [address] [place] [address]. All rights reserved. This information is not intended as a substitute for professional medical care. Always follow your healthcare professional's instructions. Patient Education Understanding STIs When it comes to sex, nothing is risk-free. Any sexual contact with the penis, vagina, anus, or mouth can spread a sexually transmitted infection (STI). These include chlamydia, gonorrhea, herpes, HIV,and genital warts. STIs are also known as sexually transmitted diseases (STDs). The only sure way toprevent STIs is not having sex (abstinence). But there are ways to make sex safer. Use a latex condom each time you have sex. And choose your partner wisely. Use condoms for safer sex If you have sex, latex condoms provide the best protection against STIs. Latex condoms stop the exchange of body fluids that carry certain STIs. They also limit contact with affected skin. Be aware that a condom doesnt cover all skin. So affected skin that isn't covered can still transfer disease. But youre safer with a condom than without one. Use a condom even if you use other control. control methods such as the pill or IUD help prevent , but they don't protect against STIs. Choose the right condom Condoms made of latex prevent disease best. If youre allergic to latex, use polyurethane condoms instead. Male condoms fit over the penis. Female condoms line the vagina. Before buying a condom, read the label to be sure it prevents disease. Some novelty condoms dont. The right lubricant helps Buy lubricated condoms or use lubricant. This provides greater comfort and reduces the risk for condom breakage. Use only water-based lubricants. Dont use oil, lotion, or petroleum jelly. They can weaken the condom, causing breakage. Also, you may want to choose lubricants without nonoxynol-9. This spermicide may cause irritation. It can raise the risk for certain STIs. Use condoms correctly For condoms to work, they must be used the right way. Keep these tips in mind: Use a new latex condom each time you have sex. Slip the condom on the penis before any contact ismade. When ready to withdraw, hold the rim of the condom as the penis pulls out. This prevents the condom from slipping off. Check the expiration date before using a condom. Dont store condoms in places that can get hot, such as a car or a wallet that is carried in a back pocket. Get to know your partner Safer sex is a process. It involves getting to know your partner and making informed choices. Ask each other how many partners you have had in the past, and how many you have now. Find out if either ofyou has HIV or any other STI. If you decide to have sex, use a condom each time. Dont stop using condoms unless youre sure neither of you has other partners and youve both been tested to confirm you dont have HIV or other STIs. Then stay free of disease by having sex only with each other (monogamy). Keep your cool Dont let alcohol or drugs cloud your judgment. They could lead you to have sex with someone you wouldnt have chosen if you were sober. Or you might forget to use a condom. If you do plan to have sex, keep a latex condom with you. Dont wait until youre in the heat of passion to try to find one. Consider abstinence The only way to be sure you wont get an STI is to abstain from sex. Abstinence is a choice that many people make at some point in their life. Maybe you want to wait until you are sure youre readybefore you have sex. Maybe youd like a break from the responsibilities of sex for a while. Or maybe you just want to know your partner better before taking the next step. Abstinence is a choice you can make now to protect your future. [employer] last reviewed this educational content on 01/22/201819993590-5999 The [employer]. [address] [place] [address]. All rights reserved. This information is not intended as a substitute for professional medical care. Always follow your healthcare professional's instructions. Patient Education Understanding HIV and AIDS It's important to know how HIV can get into your body and what happens once its there. Then youll be better prepared to protect yourself or others against this virus. A person with HIV can look and feel perfectly healthy. But that person can give HIV to others as soon as he or she is infected with the virus. Having unsafe or unprotected sex or sharing needles puts you at risk for HIV. Talk with your healthcare provider about ways to protect yourself or a loved one from getting HIV. How HIV infection progresses After HIV enters the body, it attacks the immune system in the stages below. A person with HIV can infect others once the virus gets into the blood. HIV with no symptoms. A person with HIV may have no symptoms for years. The only sign of infection may be a positive blood test for HIV 2 weeks to 3 months or later after HIV enters the body. HIV with symptoms. Some people develop an illness similar to mono (mononucleosis) 2 to 4 weeks after the virus enters the body. This is called acute retroviral syndrome. Symptoms may include swollen lymph glands, chills, fever, night sweats, weakness, weight loss, skin rashes, mouth ulcers, or sore t hroat. Symptoms may be mild or the person can feel quite sick. Even without treatment the symptoms almost always go away in a few days or up to 2 to 3 weeks. Then the person has no symptoms, often for years. But over time the immune system starts to get weaker and symptoms start appearing. People at this stage may have a yeast infection in the mouth (oral thrush), shingles, skin problems, pneumonia, diarrhea that keeps coming back, or weight loss. AIDS. AIDS is the most advanced stage of HIV infection, when the immune system is severely weakened.Certain rare diseases and cancers that normally would not occur, now can occur because the body can no longer fight them well enough. It is often these diseases that cause in people with AIDS. HIV may also directly attack the brain and nervous system. This causes seizures and loss of memory and body movement. It also affects many other parts of the body. This leads to problems such as anemia, low white blood cell count, diarrhea, belly pain, skin problems, and many others. How HIV enters the body HIV is carried in semen, vaginal fluid, blood, and breastmilk. During sex, HIV can enter the body. It gets in through the fragile tissue and linings, sores, or cuts in or around the vagina, penis, anus, and mouth. During drug use, tattooing, or body piercing, the virus can enter the blood through an infected needle. A mother who has HIV can infect her child during , childbirth, and . [employer] last reviewed this educational content on 07/23/201819995612-6372 The [employer]. [address] [place] [address]. All rights reserved. This information is not intended as a substitute for professional medical care. Always follow your healthcare professional's instructions. Patient Education Eating Heart-Healthy Foods Eating has a big impact on your heart health. In fact, eating healthier can improve several of your heart risks at once. For instance, it helps you manage weight, cholesterol, and blood pressure. Here are ideas to help you make heart- healthy changes without giving up allthe foods and flavors you love. Getting started Talk with your healthcare provider about eating plans, such as the DASH or Mediterranean diet. You may also be referred to a dietitian. Change a few things at a time. Give yourself time to get used to a few eating changes before adding more. Work to create a tasty, healthy eating plan that you can stick to for the rest of your life. Goals for healthy eating Below are some tips to improve your eating habits: Limit saturated fats and trans fats. Saturated fats raise your levels of cholesterol, so keep these fats to a minimum. They are found in foods such as fatty meats, whole milk, cheese, and palm and coconut oils. Avoid trans fats because they lower good cholesterol as well as raise bad cholesterol. Trans fats are most often found in processed foods. Reduce sodium (salt) intake. Eating too much salt may increase your blood pressure. Limit your sodium intake to 2,300 milligrams (mg) per day(the amount in 1 teaspoon of salt), or less if your healthcare provider recommends it. Dining out less often and eating fewer processed foods are two great ways to decrease the amount of salt you consume. Managing calories. A calorie is a unit of energy. Your body barreto calories for fuel, but if you eat more calories than your body barreto, the extras are stored as fat. Your healthcare provider can help you create a diet plan to manage your calories. This will likely include eating healthier foods as well as exercising regularly. To help you track your progress, keep a diary to record what you eat and how often you exercise. Choose the right foods Aim to make these foods rob of your diet. If you have diabetes, you may have different recommendations than what is listed here: Fruits and vegetables provide plenty of nutrients without a lot of calories. At meals, fill half your plate with these foods. Split the other half of your plate between whole grains and lean protein. Whole grains are high in fiber and rich in vitamins and nutrients. Good choices include whole-wheat bread, pasta, and brown rice. Lean proteins give you nutrition with less fat. Good choices include fish, skinless chicken, and beans. Low-fat or nonfat dairy provides nutrients without a lot of fat. Try low-fat or nonfat milk, cheese, or yogurt. Healthy fats can be good for you in small amounts. These are unsaturated fats, such as olive oil,nuts, and fish. Try to have at least 2 servings per week of fatty fish, such as salmon, sardines, mackerel, rainbow trout, and albacore tuna. These contain omega-3 fatty acids, which are good for your heart. Flaxseed is another source of a heart-healthy fat. More on heart-healthy eating Read food labels Healthy eating starts at the grocery store. Be sure to pay attention to food labels on packaged foods. Look for products that are high in fiber and protein, and low in saturated fat, cholesterol, and sodium. Avoid products that contain trans fat. And pay close attention to serving size. For instance, if you plan to eat two servings, double all the numbers on the label. Prepare food right A bowman part of healthy cooking is cutting down on added fat and salt. Look on the internet for lower-fat, lower-sodium recipes. Also, try these tips: Remove fat from meat and skin from poultry before cooking. Skim fat from the surface of soups and sauces. Broil, boil, bake, steam, grill, and microwave food without added fats. Choose ingredients that spice up your food without adding calories, fat, or sodium. Try these items: horseradish, hot sauce, lemon, mustard, nonfat salad dressings, and vinegar. For salt-free herbs and spices, try basil, cilantro, cinnamon, pepper, and dipiak. [employer] last reviewed this educational content on 11/22/201619996518-1196 The [employer]U. [address] [place] [address]. All rights reserved. This information is not intended as a substitute for professional medical care. Always follow your healthcare professional's instructions. Patient Education Understanding USDA MyPlate The USDA (U.S. Department of Agriculture) has guidelines to help you make healthy food choices. These are called MyPlate. MyPlate shows the food groups that make up healthy meals using the image of a place setting. Before you eat, think about the healthiest choices for what to put onto your plate or into your cup or bowl. To learn more about building a healthy plate, visit www.choosemyplate.gov. The food groups Fruits. Any fruit or 100% fruit juice counts as part of the Fruit Group. Fruits may be fresh, canned, frozen, or dried, and may be whole, cut-up, or pureed. Make half your plate fruits and vegetables. Vegetables. Any vegetable or 100% vegetable juice counts as a member of the Vegetable Group. Vegetables may be fresh, frozen, canned, or dried. They can be served raw or cooked and may be whole, cut-up, or mashed. Make half your plate fruits and vegetables. Grains. All foods made from grains are part of the Grains Group. These include wheat, rice, oats,cornmeal, and barley such as bread, pasta, oatmeal, cereal, tortillas, and grits. Grains should be no more than a quarter of your plate. At least half of your grains should be whole grains. Protein. This group includes meat, poultry, seafood, beans and peas, eggs, processed soy products(like tofu), nuts (including nut butters), and seeds. Make protein choices no more than a quarter ofyour plate. Meat and poultry choices should be lean or low fat. Dairy. All fluid milk products and foods made from milk that contain calcium, like yogurt and cheese, are part of the Dairy Group. (Foods that have little calcium, such as cream, butter, and cream cheese, are not part of the group.) Most dairy choices should be low-fat or fat-free. Oils. These are fats that are liquid at room temperature. They include canola, corn, olive, soybean, and sunflower oil. Foods that are mainly oil include mayonnaise, certain salad dressings, and soft margarines. You should have only 5 to 7 teaspoons of oils a day. You probably already get this muchfrom the food you eat. [employer] last reviewed this educational content on 09/22/201619994777-4214 The 2U. [address] [place] [address]. All rights reserved. This information is not intended as a substitute for professional medical care. Always follow your healthcare professional's instructions. documented in this encounter Progress Notes Haylee Austin SHAYNE - 08/07/2019 10:00 AM CDT Chief complaint: Chief Complaint Patient presents with Well Woman Exam HPI: the patient is here today for WWE and contraceptive management. She reports she is doing well with no issues or concerns today. She desire STI testing today and reports she is currently on ocp forbirth control and is pleased with her method. Pt (denies) current or past physical, sexual or emotional abuse. Histories OB History Para Term AB Living 1 1 1 1 SAB TAB Ectopic Multiple Live Births 1 # Outcome Date GA Lbr Jorge/2nd Weight Sex Delivery Anes PTL Lv 1 07/10/17 25w3d 1 lb 11.2 oz (0.77 kg) M SEC Spinal LUIS A Past Medical History: Diagnosis Date Heart murmur in infancy-resolved Hypertensive emergency 07/13/2017 Seizures prior to delivery; has not had since delivery Family History Problem Relation Age of Onset Hypertension Father High cholesterol Father Heart Father Heart stent High cholesterol Paternal Aunt Other - see comments Paternal Uncle Stroke Diabetes Paternal Uncle Diabetes Paternal Grandmother Heart Paternal Grandmother NM Heart Paternal Grandfather NM Hypertension Paternal Grandfather Arthritis NoFHx Asthma NoFHx defects NoFHx Breast Cancer NoFHx Colon Cancer NoFHx Ovarian Cancer NoFHx Uterine Cancer NoFHx Cancer NoFHx Depression NoFHx Genetic NoFHx Mental retardation NoFHx Neurological NoFHx Osteoporosis NoFHx Psychiatry NoFHx Family Status Relation Name Status Fa (Not Specified) PAunt (Not Specified) PUnc (Not Specified) PGMo (Not Specified) PGFa (Not Specified) NoFHx (Not Specified) Past Surgical History: Procedure Laterality Date SECTION N/A 07/10/2017 Surgeon: Diane Sheppard MD; Location: Labor and Delivery - [facility] [place] TOOTH EXTRACTION Oct or Nov 2016 under anethesia Social History Socioeconomic History Marital status: Single Spouse name: Not on file Number of children: Not on file Years of education: Not on file Highest education level: Not on file Occupational History Not on file Social Needs Financial resource strain: Not on file Food insecurity: Worry: Not on file Inability: Not on file Transportation needs: Medical: Not on file Non-medical: Not on file Tobacco Use Smoking status: Never Smoker Smokeless tobacco: Never Used Substance and Sexual Activity Alcohol use: No Drug use: No Sexual activity: Yes Partners: Male control/protection: Pill Comment: last sexual intercourse 07/22/2019 Lifestyle Physical activity: Days per week: Not on file Minutes per session: Not on file Stress: Not on file Relationships Social connections: Talks on phone: Not on file Gets together: Not on file Attends worship service: Not on file Active member of club or organization: Not on file Attends meetings of clubs or organizations: Not on file Relationship status: Not on file Intimate partner violence: Fear of current or ex partner: Not on file Emotionally abused: Not on file Physically abused: Not on file Forced sexual activity: Not on file Other Topics Concern Not on file Social History Narrative Patient lives with her father and sister. Pt denies current or past physical, sexual or emotional abuse. Social History Substance and Sexual Activity Sexual Activity Yes Partners: Male control/protection: Pill Comment: last sexual intercourse 07/22/2019 Labs Labs are pending. Radiology No new radiology. Allergies Maggi has No Known Allergies. Medications Maggi has a current medication list which includes the following prescription(s): levonorgestrel-ethinyl estradiol, tramadol, nifedipine er, and vitamin w/fa. Review of Systems Constitutional: Negative. HENT: Negative. Eyes: Negative. Respiratory: Negative. Breasts: Negative. Cardiovascular: Negative. Gastrointestinal: Negative. Genitourinary: Negative. Musculoskeletal: Negative. Skin: Negative. Neurological: Negative. Psychiatric/Behavioral: Negative. Endocrine: Endocrine negative BP 117/74 (BP Location: Right arm, Patient Position: Sitting, BP CUFF SIZE: Adult Medium) | Pulse 81 | Temp 36.4 C (97.5 F) (Oral) | Resp 16 | Ht 5' (1.524 m) | Wt 125 lb 7 oz (56.9 kg) | LMP07/22/2019 (Approximate) | BMI 24.50 kg/m Pregravid BMI: Could not be calculated Physical Exam Vitals reviewed. Constitutional: She is oriented to person, place, and time. She appears well- developed. Her body habitus is normal. Neck: No tenderness and no mass. No thyroid nodules and no thyromegaly palpated. No neck adenopathy. Cardiovascular: Regular rate and rhythm. No gallop, no friction rub and no murmur auscultated. No peripheral edema present. Pulmonary/Chest: Breath sounds clear to auscultation. Normal inspiratory effort. Abdominal: Abdomen is soft. No mass palpated. No tenderness present. There is no hepatosplenomegaly,splenomegaly or hepatomegaly. There is no rigidity. No hernia palpated or inspected. Neuro/Psychiatric: She has a normal mood and affect. She is oriented to person, place, and time. Skin: No lesion, no rash and no ulceration present. Lymphadenopathy: No neck adenopathy present. No axillary adenopathy present. No inguinal adenopathy present. Genitourinary Comments: Leona INTERIANO present during exam Breast: Right breast exhibits no mass, no nipple discharge and no tenderness. Left breast exhibits no mass, no nipple discharge and no tenderness. Breasts are symmetrical. Normal left breast and normalright breast Rectal: Rectal exam with normal anal tone. No mass, no external hemorrhoid and no internal hemorrhoid palpated or inspected. External genitalia: Normal external genitalia appropriate for age. Normal hair distribution. No labial lesion. Urethral meatus: Normal urethral meatus size, location and no lesion. No prolapse present. Normal urethral meatus Urethra: Normal urethra. No urethral tenderness, no mass and no urethral scarring palpated. Bladder: Bladder has no fullness, no mass palpated and no tenderness. Normal bladder Vagina:Normal vagina. No lesion inspected. Normal estrogen effect. Normal support. No abnormal vaginal discharge found. Cervix: Normal cervix. No lesion. No tenderness and no discharge present. Uterus: Uterus is normal size, normal contour, normal position and non-tender. Normal uterus Adnexa: Right adnexa without tenderness, ovary enlargement or mass. Left adnexa without tenderness, ovary enlargement or mass. Normal left adnexa and normal right adnexa Anus/perineum: Normal perineum and normal anus. Assessment/Plan Return to clinic in 12 weeks. for ocp follow up Return to clinic in 1 year for WWE or sooner as needed Rubella/VZV: immune BMI: 24 Td: pending Pap Smear: today Gardasil: completed Mammogram/Guaiac/Colonoscopy:na Other general counseling and advice for contraceptive management (primary encounter diagnosis) Comment: routine Plan: levonorgestrel-ethinyl estradiol (SRONYX) 0.1-20 mg-mcg per tablet Well woman exam Comment: as ordered Plan: PAP Smear-Liquid Based Screen for STD (sexually transmitted disease) Comment: as ordered Plan: GC & CHLAMYDIA AMPLIFIED ASSAY, TRICHOMONAS AMPLIFIED ASSAY, HIV 1/2 AG-AB WITH REFLEX This visit did not involve counseling and coordination that comprised more than 50% of the visit time. ADDISON Diaz 08/07/2019 10:54 AM Jamie Rand RN - 08/07/2019 10:00 AM CDT23 year old presents to the clinic for wwe. 1) Previous BCM: OCP 2) Desired BCM: OCP 3) LMP: 07/23/2019 4) Last [place]: 07/22/2019 5) Last Pap: Never Results: N/A 6) Tdap: 2017 7) Gardasil: Completed 8) C/O: Patient denies any complaints 9) Patient denies history of physical, emotional, or sexual abuse. Patient states that she currently feels safe at home. JAMIE RAND RN 08/07/2019 10:24 AM documented in this encounter Plan of Treatment Name Type Priority Associated Diagnoses Order S chedule PAP Smear-Liquid Based LAB Routine Well woman exam Ex pected: 08/07/2019, Expires: 2020 GC & CHLAMYDIA AMPLIFIED LAB Routine Screen for STD ( sexually Expected: 08/07/2019, ASSAY transmitted disease) Expires : 08/06/2020 TRICHOMONAS AMPLIFIED LAB Routine Screen for STD (sex ually Expected: 08/07/2019, ASSAY transmitted disease) Expires : 08/06/2020 HIV 1/2 AG-AB WITH REFLEX LAB Routine Screen for STD (sexually Ordered: 08/07/2019 transmitted disease) Health Maintenance Due Date Last Done Comments WELL CARE VISIT: 12-21 YEARS 10/07/2019 Pos tponed from 2009 (yearly) (Alternative [place] delines) INFLUENZA VACCINE (Season 10/24/2019 06/03/2017 Ended) CHLAMYDIA SCREENING 08/06/2020 08/07/2019, 08/19/2017, 06/03/2017 DTaP,Tdap,and Td Vaccines (1 08/06/2020 Pos tponed from 2008 - Tdap) (Alternative [place]) Depression Screening 08/06/2020 08/07/2019 MENINGOCOCCAL B VACCINES (1 08/06/2020 Post poned from 10/04/2007 of 2 - Risk Bexsero 2-dose (Alte rnative Guidelines) series) PAP SMEAR 08/06/2022 08/07/2019 HPV VACCINES Completed 01/17/2018, 08/17/2017, 07/14/2017 MENINGOCOCCAL VACCINE Aged Out No longer eligible based on patient's age to complete this to pic PNEUMOCOCCAL 0-64 YEARS Aged Out No longe r eligible based COMBINED SERIES on patient's age to complete this to pic documented as of this encounter Results Not on filedocumented in this encounter Visit Diagnoses Diagnosis Other general counseling and advice for contraceptive management - Primary Well woman exam Routine general medical examination at a health care facility Screen for STD (sexually transmitted dis ease) Screening examination for venereal disea se documented in this encounter Insurance Payer Benefit Plan Subscriber ID Effective Phone Address Typ e / Group Dates [facility] xxxxxxxxx 2019-Prese [phone] Medicaid WOMEN nt [id number] [place] [address] (Home) [place] [address] documented as of this encounter Advance Directives Name Relationship Healthcare Agent Communication Relationship Jennifer James Sibling Primary healthcare agent Randi Cohen Aunt [place] [phone] agent (Mobile) "
--- OUTSIDE RECORDS SUMMARY | 2019-09-19 17:08 | XMS REPORT | Summary of Care ---
:1995 Author Organization [facility] - Health Address [address] [place] [address] Care Team Providers Name Role Phone Jenae Funk Unavailable [facility]ast[facility]ia [facility] Primary Care Provider Encounter Details Date Type Department Care Team Description 08/07/2019 Orders Only [facility] Doctor Unassigned, No [address] [facility] [place] [address] [address] [place] [address] Allergies No Known Allergiesdocumented as of this encounter (statuses as of 08/07/2019) Medications Medication Sig Dispensed Refills Start Date End Date Status NIFEdipine ER 30 mg SR Take 1 tablet by 60 tablet 1 07/14/2017 Active tablet mouth 2 (two) times daily. vitamin w/FA Take 1 tablet by 100 tablet 3 07/14/2017 Active tablet mouth daily. traMADol (ULTRAM) 50 mg Take 1 tablet by 20 tablet 0 0 Active tabletIndications: Left mouth every 6 lower quadrant (six) hours as abdominal pain needed for Pain (scale 7-10). levonorgestrel-ethinyl Take 1 tablet by 1 Package 0 07/24/2019 Active estradiol (SRONYX) mouth daily. 0.1-20 mg-mcg per tabletIndications: Other general counseling and advice for contraceptive management documented as of this encounter (statuses as of 08/07/2019) Active Problems Problem Noted Date Other general counseling and advice for contraceptive [...] DTaP,Tdap,and Td Vaccines (1 - 2008 Tdap) Depression Screening 2009 WELL CARE VISIT: 12-21 YEARS 2009 (yearly) [...] to pic documented as of this encounter Procedures Procedure Name Priority Date/Time Associated Diagnosis Comme nts ASSIGNMENT OF BENEFITS Routine 08/07/2019 10:11 AM CDT documented in this encounter Results Not on filedocumented in this encounter Insurance Payer Benefit Plan Subscriber ID Effective Phone Address Typ e / Group Dates [facility] xxxxxxxxx 2019-Prese [phone] Medicaid WOMEN nt [id number] [place] [address] documented as of this encounter Advance Directives Name Relationship Healthcare Agent Communication Relationship Jennifer Ramirez Sibling Primary healthcare agent Randi Cohen Aunt First [facility] healthcare agent (Mobile)
--- OUTSIDE RECORDS SUMMARY | 2019-09-19 17:08 | XMS REPORT | Summary of Care ---
:1995 Author Organization [facility] Address [address] [place] [address] Care Team Providers Name Role Phone Jenae Funk Unavailable Anastasiia Austin [facility] Primary Care Provider Reason for Visit Reason Comments Appointment returning providers call Encounter Details Date Type Department Care Team Description 07/10/2019 Telephone [facility]- Haylee Austin Jeff ointment (returning [place] [facility] providers call) [address] [facility] [address] [facility] [address] [address] [place], [place] [id number] Allergies No Known Allergiesdocumented as of this encounter (statuses as of 07/11/2019) Medications Medication Sig Dispensed Refills Start Date [...] as of this encounter (statuses as of 07/11/2019) Active Problems Problem Noted Date History of classical section 08/19/2017 Overview: Needs delivery at 36-37 wks if pt gets p regnant again. documented as of this encounter (statuses as of 07/11/2019) Resolved Problems Problem Noted Date Resolved Date [...] as of this encounter (statuses as of 07/11/2019) Immunizations Name Administration Dates Next Due HPV9 [...] Treatment Date Type Specialty Care Team Description 07/24/2019 Telemedicine Visit [facility] Jacques Austin, CNP [address] [place], [place] [address] [phone] Health Maintenance Due Date Last Done Comments [...] Address Typ e / Group Dates [facility] xxxxxxxxx 2019-Prese [phone] Medicaid WOMEN nt [id number] [place] [address] documented as of this encounter Advance Directives Name Relationship Healthcare Agent Communication Relationship Jennifer Ramirez Sibling Primary healthcare agent Randi Cohen Aunt First [facility] healthcare agent (Mobile)
--- OUTSIDE RECORDS SUMMARY | 2019-09-19 17:09 | XMS REPORT | Summary of Care ---
:1995 Author Organization [facility] Address [address] [place] [id number] Care Team Providers Name Role Phone Jenae Funk Unavailable Anastasiia Austin [facility] Primary Care Provider Reason for Visit Reason Comments Well Woman Exam Encounter Details Date Type Department Care Team Description 08/07/2019 Office Visit [facility]- Haylee Austin Ot er general counseling and advice for contraceptive management (Primary Dx); Garland Laurent [facility] Well woman exam; [address] [place] [address] Screen for STD (sexually transmitted dis ease) Street [address] [place], [place] [phone] Allergies No Known Allergiesdocumented as of this [...] This exam may be done by a special education preschool teacher, family healthcare provider, nurse practitioner, nurse ceramic coater machine, or specially trained nurse. Yearly breast exams [...] Guidelines for having clinical breast exams The [employer] College of Obstetricians and Gynecologists recommends that [...] provider about what is best for you. [employer] last reviewed this educational content on 09/22/201619996290-3546 The M[employer]. [address] [place] [address]. All rights reserved. This information is not [...] breast self-examination (BSE). These experts include the [employer] and the [employer] Congress of Obstetricians and Gynecologists. Some experts [...] benign. This means they are not cancer. [employer] last reviewed this educational content on 09/22/201619997948-2545 The [employer]. [address] [place] [address]. All rights reserved. This information is not [...] 20s.But the USPSTF does not recommend CBE. [employer] last reviewed this educational content on 11/22/201619997630-4798 The [employer]. [address] [place] [address]. All rights reserved. This information is not [...] can make now to protect your future. [employer] last reviewed this educational content on 01/22/201819993533-6403 The [employer]. [address] [place] [address]. All rights reserved. This information is not [...] her child during , childbirth, and . [employer] last reviewed this educational content on 07/23/201819999087-4549 The [employer]. [address] [place] [address]. All rights reserved. This information is not [...] spices, try basil, cilantro, cinnamon, pepper, and dipika. [employer] last reviewed this educational content on 11/22/201619993797-1776 The [employer]. [address] [place] [address]. All rights reserved. This information is not [...] get this muchfrom the food you eat. [employer] last reviewed this educational content on 09/22/201619997091-1672 The [employer]. [address] [place] [address]. All rights reserved. This information is not [...] Uncle Diabetes Paternal Grandmother Heart Paternal Grandmother [place] Heart Paternal Grandfather [place] Hypertension Paternal Grandfather Arthritis NoFHx Asthma NoFHx [...] MD; Location: Labor and Delivery - [facility] [place] TOOTH EXTRACTION Oct or Nov 2016 under [...] file Gets together: Not on file Attends church service: Not on file Active member of [...] BCM: OCP 3) LMP: 07/23/2019 4) Last [place]: 07/22/2019 5) Last Pap: Never Results: N/A [...] Address Typ e / Group Dates [facility] xxxxxxxxx 2019-Prese [phone] [address] Medicaid WOMEN nt [id number] [place] [address] (Home) [place] [address] documented as of this encounter Advance Directives Name Relationship Healthcare Agent Communication Relationship Jennifer James Sibling Primary healthcare agent Randi Cohen Aunt [place] [phone] agent (Mobile) "
--- OUTSIDE RECORDS SUMMARY | 2019-09-19 17:09 | XMS REPORT | Summary of Care ---
:1995 Author Organization [facility] Address [address] [place] [id number] Care Team Providers Name Role Phone Jenae Funk Unavailable Anastasiia Austin [facility] Primary Care Provider Reason for Visit Reason Comments Well Woman Exam Encounter Details Date Type Department Care Team Description 08/07/2019 Office Visit [facility]- Haylee Austin Ot er general counseling and advice for contraceptive management (Primary Dx); [facility] Well woman exam; [address] Screen for STD (sexually transmitted dis ease) Street [place], [place] [id number] [phone] Allergies No Known Allergiesdocumented as of this [...] This exam may be done by a component engineer, family healthcare provider, nurse practitioner, nurse shank maker, or specially trained nurse. Yearly breast exams [...] Guidelines for having clinical breast exams The [place] [employer] recommends that [...] provider about what is best for you. [employer] last reviewed this educational content on 09/22/201619999734-6716 The [employer]. [address] [place] [address]. All rights reserved. This information is not [...] breast self-examination (BSE). These experts include the [place] [employer] and the [place] [employer]nec[employer]. Some experts [...] benign. This means they are not cancer. [employer] last reviewed this educational content on 09/22/201619998173-7975 The [employer], [employer]$ [employer]. [address] [place] [address]. All rights reserved. This information is not [...] 20s.But the USPSTF does not recommend CBE. [employer] last reviewed this educational content on 11/22/201619992853-9935 The [employer]. [address] [place] [address]. All rights reserved. This information is not [...] can make now to protect your future. [employer] last reviewed this educational content on 01/22/201819996048-5173 The [employer]. [address] [place] [address]. All rights reserved. This information is not [...] her child during , childbirth, and . [employer] last reviewed this educational content on 07/23/201819997165-8927 The [employer], [employer]. [address] [place] [address]. All rights reserved. This information is not [...] try basil, cilantro, cinnamon, pepper, and dipika. [employer] last reviewed this educational content on 11/22/201619998234-6304 The [employer]. [address] [place] [address]. All rights reserved. This information is not [...] get this muchfrom the food you eat. [employer] last reviewed this educational content on 09/22/201619999198-8076 The [employer]. [address] [place] [address]. All rights reserved. This information is not [...] Uncle Diabetes Paternal Grandmother Heart Paternal Grandmother [place] Heart Paternal Grandfather [place] Hypertension Paternal Grandfather Arthritis NoFHx Asthma NoFHx [...] MD; Location: Labor and Delivery - [facility] [place] TOOTH EXTRACTION Oct or Nov 2016 under [...] file Gets together: Not on file Attends judaism service: Not on file Active member of [...] BCM: OCP 3) LMP: 07/23/2019 4) Last [address]: 07/22/2019 5) Last Pap: Never Results: N/A 6) Tdap: 2017 7) Gardasil: Completed 8) C/O: Patient denies any complaints 9) Patient denies history of physical, emotional, or sexual abuse. Patient states that she currently feels safe at home. JAMIE RAND RN 08/07/2019 10:24 AM documented in this encounter Plan of Treatment Name Type Priority Associated Diagnoses Date/Ti me PAP Smear-Liquid Based LAB Routine Well woman exam 10:57 AM CDT GC & CHLAMYDIA AMPLIFIED LAB Routine Screen for STD ( sexually 08/07/2019 10:57 AM ASSAY transmitted disease) CDT TRICHOMONAS AMPLIFIED LAB Routine Screen for STD (sex ually 08/07/2019 10:57 AM ASSAY transmitted disease) CDT HIV 1/2 AG-AB WITH REFLEX LAB Routine Screen for STD (sexually 08/07/2019 10:57 AM transmitted disease) CDT Name Type Priority Associated Diagnoses Order S chedule PAP Smear-Liquid Based LAB Routine Well woman exam Ex pected: 08/07/2019, Expires: 2020 GC & CHLAMYDIA AMPLIFIED LAB Routine Screen for STD ( sexually Expected: 08/07/2019, ASSAY transmitted disease) Expires : 08/06/2020 TRICHOMONAS AMPLIFIED LAB Routine Screen for STD (sex ually Expected: 08/07/2019, ASSAY transmitted disease) Expires : 08/06/2020 Health Maintenance Due Date Last Done Comments [...] Address Typ e / Group Dates [facility] xxxxxxxxx 2019-Prese [phone] Medicaid WOMEN nt [address] [place] [address] (Home) [place] [address] documented as of this encounter Advance Directives Name Relationship Healthcare Agent Communication Relationship Jennifer Ramirez Sibling Primary healthcare agent Randi Noel Aunt First alternate healthcare [facility]0 [phone] agent (Mobile) "
--- NOTE | 2019-09-19 19:46 | ER ---
Nurse's Notes [facility] Name: Maggi Ramirez Age: 23 yrs Sex: Female : 1995 Arrival Date: 09/19/2019 Time: 17:11 Bed 28 Private MD: Diagnosis: Acute upper respiratory infection, unspecified Presentation: 09/18 17:51 Chief complaint: Patient states: the passed 4 days i have a really bad cough, and i tw2 have some congestion, i also cannot smell, nausea a little bit, and i lost my appetite, i took some mucinex last night and it helped a little but i still have sore throat and cough. Coronavirus screen: Patient reports a cough. Patient reports shortness of breath or difficulty breathing. Patient denies measured and/or subjective temperature greater than 100.4F prior to today's visit. Patient denies travel on a cruise ship or to a country the [facility] currently lists as an affected area. Patient denies contact with known and/or suspected case of COVID-19. Ebola Screen: Patient denies travel to an Ebola-affected area in the 21 days before illness onset. 17:51 Method Of Arrival: Ambulatory tw2 17:51 Acuity: ANIBAL 4 ss 19:43 Initial Sepsis Screen: Does the patient meet any 2 criteria? No. Patient's initial sepsis screen is negative. Does the patient have a suspected source of infection? No. Patient's initial sepsis screen is negative. Risk Assessment: Do you want to hurt yourself or someone else? Patient reports no desire to harm self or others. Onset of symptoms is unknown. Triage Assessment: 17:55 General: Appears in no apparent distress. slender, well groomed, Behavior is calm, tw2 cooperative, appropriate for age. Pain: Complains of pain in uvula, left aspect of posterior pharynx and right aspect of posterior pharynx. 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 - Social history:: Smoking status: Patient denies any tobacco usage or history of. Screenin:47 Abuse screen: Denies threats or abuse. Nutritional screening: No deficits noted. Tuberculosis screening: No symptoms or risk factors identified. Fall Risk None identified. Assessment: 19:45 General: Appears in no apparent distress. Behavior is calm, cooperative, appropriate ah for age. Pain: Denies pain. Neuro: Level of Consciousness is awake, alert, obeys commands, Oriented to person, place, time, situation, Appropriate for age. Cardiovascular: Capillary refill < 3 seconds Patient's skin is warm and dry. Respiratory: Reports shortness of breath on exertion cough that is Airway is patent Respiratory effort is even, unlabored, Respiratory pattern is regular, symmetrical. GI: Reports nausea. EENT: Reports nasal congestion nasal discharge clear sneezing. Derm: Vital Signs: 17:51 BP 122 / 85; Pulse 86; Resp 16; Temp 98.2(TE); Pulse Ox 99% on R/A; Weight 54.43 kg tw2 (R); Height 5 ft. 0 in. (152.40 cm); Pain 5/10; 19:42 BP 116 / 87; Pulse 68; Resp 17; Pulse Ox 99% ; ah 17:51 Body Mass Index 23.44 (54.43 kg, 152.40 cm) tw2 ED Course: 17:11 Patient arrived in ED. am2 17:54 Arm band placed on. tw2 18:00 Ivan Jamison NP is PHCP. pm1 18:00 Nnamdi Rucker MD is Attending Physician. pm1 18:08 Dory Lemos, MARGOT is Primary Nurse. vc 19:10 Triage completed. ss 19:14 COVID-19 Sent. kj1 19:14 Flu Sent. kj1 19:14 Strep Sent. kj1 19:47 Patient has correct armband on for positive identification. Bed in low position. Call light in reach. Pulse ox on. NIBP on. 19:48 No provider procedures requiring assistance completed. Patient did not have IV access during this emergency room visit. Administered Medications: No medications were administered Outcome: 19:46 Discharge ordered by . pm1 19:48 Discharged to home ambulatory. 19:48 Condition: good 19:48 Discharge instructions given to patient, Instructed on discharge instructions, follow up and referral plans. Demonstrated understanding of instructions, follow-up care. 20:02 Patient left the ED. Addendum: 09/25/2019 11:54 Addendum: COVID-19 Result: Negative result given to RN to notify pt. Attempted to d m5 contact pt regarding negative COVID-19 swab results. Left voice mail. 09/27/2019 10:31 Addendum: COVID-19 Result: Negative result given to RN to notify pt. Notified pt of d m5 negative COVID 19 swab results. Pt advised that even with a negative test result they should remain in isolation until symptom free for 3 days without medication. Pt also advised to return to the ED for worsening symptoms. Signatures: Sveta Cheek, RN MARGOT dm5 Albina Sanz RN RN ss Ivan Jamison, SOLID PROPELLANT PROCESSOR SOLID PROPELLANT PROCESSOR pm1 Cori Tobias RN RN tw2 Sulma Ramirez am2 Anusha Sunshine kj1 Dory Lemos RN RN vc Harris, Amy, RN RN
--- NOTE | 2019-09-19 19:47 | EDPHYS ---
Physician Documentation [facility] Name: Maggi Ramirez Age: 23 yrs Sex: Female : 1995 Arrival Date: 09/19/2019 Time: 17:11 Bed 28 Private MD: ED Physician Nnamdi Rucker HPI: 09/18 18:03 This 23 yrs old Female presents to ER via Ambulatory with complaints of Cough, pm1 Sneezing, Nausea/Vomiting. 18:03 The patient or guardian reports cough, with no sputum. Onset: The symptoms/episode pm1 began/occurred 4 day(s) ago. Severity of symptoms: in the emergency department the symptoms have improved. Modifying factors: The symptoms are alleviated by OTC cold preparation. Associated signs and symptoms: Pertinent positives: vomit x1 yesterday, loss of sense of smell, sore throat, Pertinent negatives: fever, chest pain, shortness of breath. The patient has not recently seen a physician. 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 Denies sick contacts. 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 - Social history:: Smoking status: Patient denies any tobacco usage or history of. ROS: 18:03 Constitutional: Negative for fever, chills, and weight loss, Eyes: Negative for injury, pm1 pain, redness, and discharge. 18:03 Cardiovascular: Negative for chest pain, palpitations, and edema. 18:03 Back: Negative for injury and pain, : Negative for injury, bleeding, discharge, and swelling, MS/Extremity: Negative for injury and deformity, Skin: Negative for injury, rash, and discoloration. 18:03 ENT: Positive for sore throat, Negative for ear pain. 18:03 Respiratory: Positive for cough, Negative for shortness of breath, sputum production, wheezing. 18:03 Abdomen/GI: Positive for vomiting, Negative for abdominal pain, diarrhea, constipation. 18:03 Neuro: Positive for loss sense of smell, Negative for altered mental status, dizziness, headache, numbness, tingling, weakness. Exam: 18:03 Constitutional: This is a well developed, well nourished patient who is awake, alert, pm1 and in no acute distress. Head/Face: Normocephalic, atraumatic. Eyes: Pupils equal round and reactive to light, extra-ocular motions intact. Lids and lashes normal. Conjunctiva and sclera are non-icteric and not injected. Cornea within normal limits. Periorbital areas with no swelling, redness, or edema. 18:03 Neck: Trachea midline, no thyromegaly or masses palpated, and no cervical lymphadenopathy. Supple, full range of motion without nuchal rigidity, or vertebral point tenderness. No Meningismus. 18:03 Back: No spinal tenderness. No costovertebral tenderness. Full range of motion. Skin: Warm, dry with normal turgor. Normal color with no rashes, no lesions, and no evidence of cellulitis. MS/ Extremity: Pulses equal, no cyanosis. Neurovascular intact. Full, normal range of motion. 18:03 ENT: External ear(s): are unremarkable, Ear canal(s): are normal, TM's: are normal, Nose: no acute changes, Posterior pharynx: Tonsils: bilaterally enlarged, with erythema, no exudate, no ulcerations, peritonsillar mass, is not appreciated. 18:03 Cardiovascular: Rate: normal, Rhythm: regular, Pulses: no pulse deficits are appreciated. 18:03 Respiratory: Exam negative for acute changes, respiratory distress, shortness of breath. 18:03 Abdomen/GI: Exam negative for acute changes, Inspection: abdomen appears normal, Palpation: abdomen is soft and non-tender, in all quadrants. 18:03 Neuro: Exam negative for acute changes, Orientation: is normal, Motor: is normal, moves all fours, Sensation: is normal, no obvious gross deficits. Vital Signs: 17:51 BP 122 / 85; Pulse 86; Resp 16; Temp 98.2(TE); Pulse Ox 99% on R/A; Weight 54.43 kg tw2 (R); Height 5 ft. 0 in. (152.40 cm); Pain 5/10; 19:42 BP 116 / 87; Pulse 68; Resp 17; Pulse Ox 99% ; ah 17:51 Body Mass Index 23.44 (54.43 kg, 152.40 cm) tw2 MDM: 18:02 Patient medically screened. pm1 19:14 Data reviewed: vital signs. Data interpreted: Pulse oximetry: on room air is 99 %. pm1 Interpretation: normal. 19:46 Counseling: I had a detailed discussion with the patient and/or guardian regarding: the pm1 historical points, exam findings, and any diagnostic results supporting the discharge/admit diagnosis, lab results, the need for outpatient follow up, to return to the emergency department if symptoms worsen or persist or if there are any questions or concerns that arise at home. 09/18 18:02 Order name: COVID-19 pm1 09/18 18:02 Order name: Flu; Complete Time: 19:46 pm1 09/18 18:02 Order name: Strep; Complete Time: 19:46 pm1 09/18 18:02 Order name: Droplet/Contact Precautions; Complete Time: 19:41 pm1 09/18 19:45 Order name: Throat Culture [facility] 09/18 18:02 Order name: Labs collected and sent; Complete Time: 19:41 pm1 09/18 18:02 Order name: O2 Per Protocol; Complete Time: 19:41 pm1 Administered Medications: No medications were administered Disposition: 09/19 08:43 Co-signature as Attending Physician, Nnamdi Rucker MD I agree with the assessment and [facility] plan of care. Disposition: 09/19/19 19:46 Discharged to Home. Impression: Acute upper respiratory infection, unspecified. - Condition is Stable. - Discharge Instructions: Upper Respiratory Infection, Adult, COVID-19. - Work release form, Medication Reconciliation Form, Thank You Letter, Antibiotic Education, Prescription Opioid Use form. - Follow up: Emergency Department; When: As needed; Reason: Worsening of condition. Follow up: Private Physician; When: 2 - 3 days; Reason: Recheck today's complaints, Continuance of care, Re-evaluation by your physician. - Problem is new. - Symptoms have improved. Signatures: Dispatcher [employer] Nnamdi Graham MD MD cha Marinas, Patrick, PILO ARMORED CAR MESSENGER pm1 Cori Tobias RN RN tw2 Kanwal William RN RN Corrections: (The following items were deleted from the chart) 07/28 20:02 19:46 09/19/2019 19:46 Discharged to Home. Impression: Acute upper respiratory ah infection, unspecified. Condition is Stable. Forms are Medication Reconciliation Form, Thank You Letter, Antibiotic Education, Prescription Opioid Use. Follow up: Emergency Department; When: As needed; Reason: Worsening of condition. Follow up: Private Physician; When: 2 - 3 days; Reason: Recheck today's complaints, Continuance of care, Re-evaluation by your physician. Problem is new. Symptoms have improved. pm1
[2019-09-19 20:08] VITALS: TEMP 98.2; O2SAT 99
[2019-09-19 20:09] VITALS: BP 116/87
== END 2019-09-19 20:02 | disposition home or self-care (01) ==
LOC: ER 17:05
DX: J06.9 Acute upper respiratory infection, unspecified (principal); Z20.828 Contact with and (suspected) exposure to other viral communicable diseases
CPT/HCPCS: 87070; 87081; 87804; 99283; U0001

== ENCOUNTER 2021-11-15 00:14 | Emergency (ER) | payer SELFPAY ==
--- OUTSIDE RECORDS SUMMARY | 2021-11-15 00:18 | XMS REPORT | Continuity of Care Document ---
:1995 Author Organization [facility] t Address [address] [place] [address] Care Team Providers Name Role Phone HAYLEE NAVAS Primary Care Physician Unavailable SHAE CABAN Attending Clinician Unavailable Shae Rios Attending Clinician Haylee Munroe Attending Clinician [phone] Payers Payer Name Policy Type Policy Number Effective Date Expiration Date Kenia mendes [id number] 2019 00:00:00 Problems Condition Condition Condition Status Onset Resolution Last Treating Co mments Source Name Details Category Date Date Treatment Clinician Date BMI BMI Disease Active Univers 25.0-25.9, 25.0-25.9, 6-16 it y of adult adult 00:00: [place] [address] Medical Branch Encounter Encounter Disease Active Uni vers for for 6-16 ity of surveillan surveillan 00:00: [place] ce of ce of 00 Medical contracept contracept Br anch bailey pills bailey pills Disease Active Univers control control 6-15 [place] Other Other Disease Active Univers general general 07-23 ity of counseling [place] and advice and advice 00 Nm dical for for Branch contracept contracept bailey baiely management management History of History of Disease Active Overview : Univers classical classical 6-28 Formattin i ty of 00:00: g of this Edvin as section section 00 note Medical might be Branch different from the original. Needs delivery at 36-37 wks if pt gets again. Allergies, Adverse Reactions, Alerts Allergy Allergy Status Severity Reaction(s) Onset Inactive Treating Comm ents Source Name Type Date Date Clinician NO KNOWN Drug Active Univers ALLERGIE Class ity of S [facility] Social History Social Habit Start Date Stop Date Quantity Comments Source History of Smoker University of tobacco use [facility] [place] History SDOH University o f Alcohol Frequency [place] [facility] History SDOH University o f Alcohol Std [place] [facility] Branch History SDNM University o f Alcohol Binge [place] [facility] [place] Exposure to 2021-07-29 2021-08-08 Not sure University SARS-CoV-2 00:00:00 09:50:00 [facility] (event) [place] Tobacco use and 2021-08-08 2021-08-08 Never used Universit y of exposure 00:00:00 00:00:00 [facility] Alcohol intake 2021-08-08 2021-08-08 Current drinker Unive rsity of 00:00:00 00:00:00 of alcohol [facility] (finding) [place] Alcohol Comment 2021-08-08 2021-08-08 social Universit y of 00:00:00 00:00:00 [facility] Tobacco Comment 2021-08-08 2021-08-08 a couple Universit y of 00:00:00 00:00:00 cigarretes a day [facility] dical [place] Sex Assigned At [birth year] Universit y of 00:00:00 00:00:00 [facility] Smoking Status Start Date Stop Date Source Current every day smoker 2021-08-08 00:00:00 Uni versity of [facility] Medications Ordered Filled Start Stop Current Ordering Indication Dosage Frequency Signature Comments Components Source Medication Medication Date Date Medication? Clinician (SIG) Name Name SHIRLEY Yes [id number] TAKE ONE Uni vers 0.1-20 5-23 TABLET BY ity of mg-mcg per 00:00: MOUTH [place] tablet 00 DAILY Medical [place] Immunizations Ordered Filled Immunization Date Status Comments Sourc e Immunization Name Name HPV9 2018-01-17 Completed [facility] 00:00:00 [facility] HPV9 2017-08-17 Completed [facility] 00:00:00 [facility] HPV9 2017-07-14 Completed [facility] 00:00:00 [facility] Influenza Virus 2017-06-03 Completed [facility] y of Vaccine Quad IM 3+ 00:00:00 [facility] Vital Signs Vital Name Observation Time Observation Value Comments Source Systolic blood 2021-08-08 14:51:00 138 mm[Hg] Univer sity of [facility] Diastolic blood 2021-08-08 14:51:00 86 mm[Hg] [facility] Heart rate 2021-08-08 14:51:00 72 /min [facility] Body temperature 2021-08-08 14:51:00 36.56 [place] [facility] Respiratory rate 2021-08-08 14:51:00 16 /min [facility] Body height 2021-08-08 14:51:00 162.6 cm [facility] Body weight 2021-08-08 14:51:00 68.176 kg [facility] BMI 2021-08-08 14:51:00 25.80 kg/m2 [facility] Procedures Procedure Date / Time Performed Performing Clinician Bill e POCT TEST 2021-08-08 14:58:00 Shae [facility] Encounters Start End Encounter Admission Attending Care Care Encounter Source Date/Time Date/Time Type Type Clinicians Facility Department ID 2021-08-21 2021-08-21 Outpatient Wendy CABAN [facility] [id number] Univers 08:30:00 08:30:00 SHAE [id number] keegan o f [facility] 2021-08-21 2021-08-21 Outpatient Wendy CABAN [facility] [id number] Univers 08:30:00 08:30:00 SHAE allison o f [facility] 2021-08-08 2021-08-08 Office Shae Caban [facility] [id number] [facility] 09:45:00 10:29:10 Visit Haylee Navas [facility]ALKER [id number] ity of REGIONAL [id number] [place] as MATERNAL [id number] Med ical & CHILD [address] [place] [address] 2019-08-07 2019-08-07 Office Norman [facility] [id number] 10:13:20 10:58:03 Visit Haylee Laurent [facility]ALKER [id number] [facility] [id number] MATERNAL [id number] & CHILD [address] [place] [address] Results Test Description Test Time Test Comments Results Result Comments Source POCT TEST 2021-08-08 14:58:00 Test Item Value Reference Range Interpretation Comme nts POCT PREG (test code = 1605) Negative On board controls acceptable with C Line (test code = 3574) Yes POCT PREG LOT # (test code = 3575) POCT PREG TEST DATE (test code = 3576) [facility]
--- NOTE | 2021-11-15 00:50 | EDPHYS ---
Physician Documentation [facility] Name: Maggi Ramirez Age: 26 yrs Sex: Female : 1995 Arrival Date: 11/15/2021 Time: 00:19 Bed 27 Private MD: ED Physician Joaquim Gomez HPI: 11/15 00:37 This 26 yrs old Female presents to ER via Ambulatory with complaints of Eye kb Problem. 00:37 The patient is experiencing blurred vision, matting or discharge, redness, The patient kb sustained None. to both eyes, caused by an unknown mechanism. Onset: The symptoms/episode began/occurred 1 week(s) ago. Duration: the symptoms are continuous. Aggravated by nothing. Alleviated by nothing. Associated signs and symptoms: Pertinent positives: None. Severity of symptoms: At their worst the symptoms were moderate in the emergency department the symptoms have improved. The patient has not experienced similar symptoms in the past. The patient has not recently seen a physician. Pt reports redness, extreme itching and white/green discharge from both eyes that started a week ago. States she has had blurred vision for the past 2 days, better today. 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 - Social history:: Smoking status: Patient reports the use of cigarette tobacco products, smokes one-half pack cigarettes per day. ROS: 00:36 Constitutional: Negative for fever, chills, and weight loss. kb 00:36 Eyes: Positive for blurry vision, discharge, itching, redness. 00:36 All other systems are negative. Exam: 00:36 Constitutional: This is a well developed, well nourished patient who is awake, alert, kb and in no acute distress. Head/Face: Normocephalic, atraumatic. Respiratory: Respirations even and unlabored. No increased work of breathing. Talking in full sentences Skin: Warm, dry with normal turgor. Normal color. MS/ Extremity: Pulses equal, no cyanosis. Neurovascular intact. Full, normal range of motion. Neuro: Awake and alert, GCS 15, oriented to person, place, time, and situation. Moves all extremities. Normal gait. Psych: Awake, alert, with orientation to person, place and time. Behavior, mood, and affect are within normal limits. 00:36 Eyes: Periorbital structures: appear normal, Pupils: equal, round, and reactive to light and accomodation, Extraocular movements: intact throughout, Conjunctiva: exudate, bilaterally, injected, bilaterally. Vital Signs: 00:23 BP 139 / 87; Pulse 113; Resp 18; Temp 98.8; Pulse Ox 97% on R/A; Weight 63.5 kg; Height tw5 5 ft. 0 in. (152.40 cm); Pain 9/10; 00:23 Body Mass Index 27.34 (63.50 kg, 152.40 cm) tw5 Visual Acuity: 00:45 Left Eye Visual acuity 20/50, Normal, Non Reactive; Right Eye Visual acuity 20/40, ke1 Normal, Non Reactive; Both Eyes Visual acuity 20/40; With Lenses; MDM: 00:26 Patient medically screened. kb 00:37 Data reviewed: vital signs, nurses notes. Data interpreted: Pulse oximetry: on room air kb is 97 %. Interpretation: normal. Counseling: I had a detailed discussion with the patient and/or guardian regarding: the historical points, exam findings, and any diagnostic results supporting the discharge/admit diagnosis, the need for outpatient follow up, an opthalmologist, to return to the emergency department if symptoms worsen or persist or if there are any questions or concerns that arise at home. 11/15 00:27 Order name: Visual Acuity; Complete Time: 00:47 kb Administered Medications: No medications were administered Disposition: 08:23 Co-signature as Attending Physician, Joaquim ZAMORA was immediately available onsite ms3 in the emergency department for consultation in the care of the patient. Disposition Summary: 11/15/21 00:49 Discharge Ordered Location: Home Condition: Stable kb Diagnosis - Unspecified acute conjunctivitis, bilateral kb Followup: kb - With: Emergency Department - When: As needed - Reason: Worsening of condition Followup: kb - With: Private Physician - When: 2 - 3 days - Reason: Recheck today's complaints, Continuance of care, Re-evaluation by your physician Discharge Instructions: - Discharge Summary Sheet kb - Bacterial Conjunctivitis, Adult, [id number] kb Forms: - Medication Reconciliation Form kb - Thank You Letter kb - Antibiotic Education kb - Prescription Opioid Use kb Prescriptions: - polymyxin B sulf-trimethoprim 10,000 unit- 1 mg/mL Ophthalmic drops - instill 1 drop by OPHTHALMIC route every 4 hours for 1 week; 1 bottle; Refills: kb 0, Product Selection Permitted Signatures: Lucy Sunshine, Joaquim Bardales DO DO ms3 Melody Hein tw5
--- NOTE | 2021-11-15 00:50 | ER ---
Nurse's Notes [facility] Name: Maggi Ramirez Age: 26 yrs Sex: Female : 1995 Arrival Date: 11/15/2021 Time: 00:19 Bed 27 Private MD: Diagnosis: Unspecified acute conjunctivitis, bilateral Presentation: 11/15 00:23 Chief complaint: Patient states: "For the past week my eyes have been really irritated, tw5 but recently I cannot see out of my right eye. I think it is an infection because I have green stuff coming out of my eyes.". Coronavirus screen: Vaccine status: Patient reports receiving the 2nd dose of the covid vaccine. [employer]. Ebola Screen: Patient negative for fever greater than or equal to 101.5 degrees Fahrenheit, and additional compatible Ebola Virus Disease symptoms Patient denies exposure to infectious person. Patient denies travel to an Ebola-affected area in the 21 days before illness onset. Initial Sepsis Screen: Does the patient meet any 2 criteria? HR > 90 bpm. Does the patient have a suspected source of infection? Yes: Other: eyes. 00:23 Acuity: ANIBAL 4 tw5 00:23 Method Of Arrival: Ambulatory tw5 00:23 Risk Assessment: Do you want to hurt yourself or someone else? Patient reports no tw5 desire to harm self or others. Onset of symptoms is unknown. Triage Assessment: 00:25 General: Appears in no apparent distress. Behavior is calm, cooperative, appropriate tw5 for age. Pain:. EENT: Eyes are tearing on inner aspect of conjuctiva of right eye and inner aspect of conjunctiva of left eye. 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 - Social history:: Smoking status: Patient reports the use of cigarette tobacco products, smokes one-half pack cigarettes per day. Screenin:48 Abuse screen: Denies threats or abuse. Nutritional screening: No deficits noted. ke1 Tuberculosis screening: No symptoms or risk factors identified. Fall Risk None identified. Vital Signs: 00:23 BP 139 / 87; Pulse 113; Resp 18; Temp 98.8; Pulse Ox 97% on R/A; Weight 63.5 kg; Height tw5 5 ft. 0 in. (152.40 cm); Pain 9/10; 00:23 Body Mass Index 27.34 (63.50 kg, 152.40 cm) tw5 Visual Acuity: 00:45 Left Eye Visual acuity 20/50, Normal, Non Reactive; Right Eye Visual acuity 20/40, ke1 Normal, Non Reactive; Both Eyes Visual acuity 20/40; With Lenses; ED Course: 00:19 Patient arrived in ED. ja2 00:24 Lucy Sunshine FNP-C is [facility]. goldy 00:24 Joaquim Gomez DO is Attending Physician. kb 00:24 Triage completed. tw5 00:25 Arm band placed on. tw5 00:35 Christiano Stokes, MARGOT is Primary Nurse. ke1 00:49 Bed in low position. Call light in reach. ke1 00:53 No provider procedures requiring assistance completed. Patient did not have IV access ke1 during this emergency room visit. Administered Medications: No medications were administered Medication: 00:54 VIS not applicable for this client. ke1 Outcome: 00:49 Discharge ordered by MD. kb 00:54 Discharged to home ambulatory. ke1 00:54 Condition: good 00:54 Discharge instructions given to patient. 00:54 Patient left the ED. ke1 Signatures: Lucy Sunshine FNP-C FNP-Ckb Alexander, Jessica [facility] Melody Hein tw5 Christiano Stokes, RN RN ke1
[2021-11-16 16:52] VITALS: BP 139/87; TEMP 98.8; O2SAT 97
== END 2021-11-15 00:54 | disposition home or self-care (01) ==
LOC: ER 00:14
DX: H10.33 Unspecified acute conjunctivitis, bilateral (principal); F17.210 Nicotine dependence, cigarettes, uncomplicated
CPT/HCPCS: 99282